=== PATIENT | male | born 1965 | race Caucasian/White ===

== ENCOUNTER 2017-10-21 11:19 | Inpatient (IN) | payer OTHER ==
[2017-10-21] MEDS ORDERED: morphine CARPU-JECT 2 MG/1 ML DISP.SYRIN IVPUSH ONE (11:48)
--- NOTE | 2017-10-21 11:48 | PDOC ---
History of Present Illness - General History Source: Patient Exam Limitations: No Limitations - History of Present Illness Initial Comments: 10/21/17 12:55 The patient is a 52-year-old male, with no significant PMHx, who reports to the ED complaining of a 1-week history of cough with subjective fever and acute onset of pleuritic chest pain this morning.The patient states that he flew in from this morning and reports shortness of breath that began after his flight landed. Patient denies any nausea, vomiting, diarrhea, or abdominal pain. Allergies: NKA Surgical Hx: None reported Social Hx: No reported tobacco, drug, or alcohol use. PCP: N/A <Joycelyn Cook - Last Filed: 10/21/17 12:55> <Kamini Cunha - Last Filed: 10/22/17 08:04> - General Chief Complaint: Shortness of Breath Stated Complaint: SHORTNESS OF BREATH Time Seen by Provider: 10/21/17 11:43 Past History <Joycelyn Cook - Last Filed: 10/21/17 12:55> - Past Medical History COPD: No DVT: No - Immunization History Immunization Up to Date: Yes - Suicide/Smoking/Psychosocial Hx Smoking History: Never smoked Number of Cigarettes Smoked Daily: 20 Information on smoking cessation initiated: No Hx Alcohol Use: No Drug/Substance Use Hx: No Substance Use Type: None <Kamini Cunha - Last Filed: 10/22/17 08:04> - Past Medical History Allergies/Adverse Reactions: Allergies Allergy/AdvReac Type Severity Reaction Status Date / Time No Known Allergies Allergy Verified 10/21/17 11:21 Home Medications: Ambulatory Orders NK [No Known Home Medication] 10/21/17 Review of Systems - Review of Systems Able to Perform ROS?: Yes Comments:: 10/21/17 12:56 GENERAL/CONSTITUTIONAL: (+)Fever. No chills. No weakness. HEAD, EYES, EARS, NOSE AND THROAT: No change in vision. No ear pain or discharge. No sore throat. CARDIOVASCULAR: (+)Chest pain or shortness of breath. RESPIRATORY: No cough, wheezing, or hemoptysis. SKIN: No rash GASTROINTESTINAL: No nausea, vomiting, diarrhea or constipation. GENITOURINARY: No dysuria, frequency, or change in urination. MUSCULOSKELETAL: No joint or muscle swelling or pain. No neck or back pain. NEUROLOGIC: No headache, vertigo, loss of consciousness, or change in strength/ sensation. ENDOCRINE: No increased thirst. No abnormal weight change. HEMATOLOGIC/LYMPHATIC: No anemia, easy bleeding, or history of blood clots. ALLERGIC/IMMUNOLOGIC: No hives or skin allergy. <Joycelyn Cook - Last Filed: 10/21/17 12:55> *Physical Exam - Vital Signs Last Vital Signs Temp Pulse Resp BP Pulse Ox 98.2 F 109 H 20 159/118 97 10/21/17 11:23 10/21/17 11:23 10/21/17 11:23 10/21/17 11:23 10/21/17 12:18 - Physical Exam Comments: 10/21/17 12:57 GENERAL: Awake, alert, and fully oriented. (+)Appears uncomfortable HEAD: No signs of trauma EYES: PERRLA, EOMI, sclera anicteric, conjunctiva clear ENT: Auricles normal inspection, hearing grossly normal, nares patent, oropharynx clear without exudates. Moist mucosa NECK: Normal ROM, supple, no lymphadenopathy, JVD, or masses LUNGS: (+)Crackles in the bases bilaterally, tachypneic with short shallow breath sounds. No wheezes. HEART: (+)Tachycardic. Normal S1 and S2, no murmurs, rubs or gallops ABDOMEN: Soft, nontender, normoactive bowel sounds. No guarding, no rebound. No masses EXTREMITIES: Normal range of motion, no edema. No clubbing or cyanosis. No cords, erythema, or tenderness NEUROLOGICAL: Cranial nerves II through XII grossly intact. Normal speech, normal gait SKIN: Warm, Dry, normal turgor, no rashes or lesions noted <Joycelyn Cook - Last Filed: 10/21/17 12:55> - Vital Signs Last Vital Signs Temp Pulse Resp BP Pulse Ox 98.2 F 109 H 20 159/118 99 10/21/17 11:23 10/21/17 11:23 10/21/17 11:23 10/21/17 11:23 10/21/17 11:23 <Kamini Cunha - Last Filed: 10/22/17 08:04> ED Treatment Course - LABORATORY CBC & Chemistry Diagram: 10/21/17 12:35 10/21/17 12:35 - Medications Given in the ED: ED Medications Discontinued Medications Generic Name Dose Route Start Last Admin Trade Name Alejandro PRN Reason Stop Dose Admin Morphine Sulfate 2 mg 10/21/17 11:48 10/21/17 12:01 Morphine Injection - IVPUSH 10/21/17 11:49 2 mg ONCE ONE Administration <Joycelyn Cook - Last Filed: 10/21/17 12:55> - LABORATORY CBC & Chemistry Diagram: 10/22/17 06:00 10/21/17 12:35 <Kamini Cunha - Last Filed: 10/22/17 08:04> Medical Decision Making - Medical Decision Making 10/22/17 07:56 Pt presents to the ED complaining of the acute onset of chest pain and shortness of breath that began while on a flight from [place] Also reports a week long history of subjective fever and productive cough. Differential included PNA, PE, less likely ACS, musculoskeletal chest pain. CXR negative for PNA, initial troponin negative, D dimer elevated. Will check CT PE to rule out PE. <Kamini Cunha - Last Filed: 10/22/17 08:04> *DC/Admit/Observation/Transfer - Attestations Scribe Attestion: 10/21/17 13:00 Documentation prepared by Joycelyn Cook, acting as medical billing coordinator for Kamini Cunha MD. <Joycelyn Cook - Last Filed: 10/21/17 12:55> <Kamini Cunha - Last Filed: 10/22/17 08:04> Diagnosis at time of Disposition: Chest pain - Discharge Dispostion Condition at time of disposition: Stable
[2017-10-21] MEDS ORDERED: MORPHINE SULFATE 10 MG/1 ML *VIAL ONE (12:04)
[2017-10-21 12:58] LABS: BASO % 0.6 % (0-2.0); EOS % 0.7 % (0-4.5); HEMATOCRIT 44.8 % (35.4-49); HEMOGLOBIN 15.4 GM/dL (11.7-16.9); LYMPH % 27.8 % (8-40); MCH 32.8 pg (25.7-33.7); MCHC 34.3 g/dl (32.0-35.9); MEAN CELL VOLUME 95.7 fl (80-96); MEAN PLT VOLUME 7.9 fl (7.5-11.1); MONO % 9.7 % (3.8-10.2); NEUT % 61.2 % (42.8-82.8); PLATELET COUNT 216 K/MM3 (134-434); RBC 4.68 M/mm3 (4.00-5.60); RDW 12.9 % (11.9-15.9); WHITE BLOOD COUNT 5.4 K/mm3 (4.0-10.0)
[2017-10-21 13:27] LABS: ALBUMIN 4.3 g/dl (3.4-5.0); ALK PHOS 96 U/L (45-117); ANION GAP 7 (8-16); BILIRUBIN,TOTAL 0.5 mg/dL (0.2-1.0); BLOOD UREA NITROGEN 14 mg/dL (7-18); CALCIUM 9.2 mg/dL (8.5-10.1); CHLORIDE 101 mmol/L (98-107); CO2 29 mmol/L (21-32); CREATININE 0.9 mg/dL (0.7-1.3); GLUCOSE,RANDOM 133 mg/dL (74-106); POTASSIUM 4.1 mmol/L (3.5-5.1); SGOT/AST 59 U/L (15-37); SGPT/ALT 98 U/L (12-78); SODIUM 137 mmol/L (136-145); TOT PROT 7.5 g/dl (6.4-8.2)
[2017-10-21] MEDS ORDERED: KETOROLAC TROMETHAMINE 30 MG/1 ML VIAL IVPUSH ONE (13:35)
[2017-10-21] MEDS ORDERED: KETOROLAC TROMETHAMINE 30 MG/1 ML VIAL ONE (13:38)
[2017-10-21] MEDS ORDERED: amLODIPine BESYLATE 10 MG TABLET (FP) PO ONE (14:40)
[2017-10-21 15:10] LABS: N-TERMINAL BNP 61.12 pg/ml (5-125)
[2017-10-21] MEDS ORDERED: amLODIPine BESYLATE 5 MG TABLET (FP) ONE (15:17)
[2017-10-21 18:54] LABS: URINE APPEARANCE CLEAR; URINE BILIRUBIN NEGATIVE (NEGATIVE); URINE BLOOD 1+ (NEGATIVE); URINE COLOR STRAW; URINE GLUCOSE (UA) NEGATIVE (NEGATIVE); URINE KETONE NEGATIVE (NEGATIVE); URINE LEUK ESTERASE NEGATIVE (NEGATIVE); URINE NITRITE NEGATIVE (NEGATIVE); URINE PROTEIN NEGATIVE (NEGATIVE); URINE UROBILINOGEN NEGATIVE mg/dL (0.2-1.0)
--- NOTE | 2017-10-21 20:39 | PDOC ---
*Physical Exam - Vital Signs Last Vital Signs Temp Pulse Resp BP Pulse Ox 97.9 F 71 18 170/108 97 10/21/17 20:28 10/21/17 20:29 10/21/17 20:29 10/21/17 20:29 10/21/17 20:29 ED Treatment Course - LABORATORY CBC & Chemistry Diagram: 10/21/17 12:35 10/21/17 12:35 - ADDITIONAL ORDERS Additional order review: Laboratory Results 10/21/17 10/21/17 10/21/17 18:40 13:30 12:35 D-Dimer 694 H Sodium Potassium Chloride Carbon Dioxide Anion Gap BUN Creatinine Creat Clearance w eGFR Random Glucose Lactic Acid Calcium Total Bilirubin AST ALT Alkaline Phosphatase Creatine Kinase Cancelled Troponin I Cancelled B-Natriuretic Peptide Cancelled Total Protein Albumin Urine Color Straw Urine Appearance Clear Urine pH 6.0 Ur Specific [place] 1.030 Urine Protein Negative Urine Glucose (UA) Negative Urine Ketones Negative Urine Blood 1+ H Urine Nitrite Negative Urine Bilirubin Negative Urine Urobilinogen Negative Ur Leukocyte Esterase Negative Urine WBC (Auto) <1 Urine RBC (Auto) <1 10/21/17 10/21/17 12:35 12:35 D-Dimer Sodium 137 Potassium 4.1 Chloride 101 Carbon Dioxide 29 Anion Gap 7 L BUN 14 Creatinine 0.9 Creat Clearance w eGFR > 60 Random Glucose 133 H Lactic Acid 1.5 Calcium 9.2 Total Bilirubin 0.5 AST 59 H ALT 98 H Alkaline Phosphatase 96 Creatine Kinase 106 Troponin I < 0.02 B-Natriuretic Peptide 61.12 Total Protein 7.5 Albumin 4.3 Urine Color Urine Appearance Urine pH Ur Specific [place] Urine Protein Urine Glucose (UA) Urine Ketones Urine Blood Urine Nitrite Urine Bilirubin Urine Urobilinogen Ur Leukocyte Esterase Urine WBC (Auto) Urine RBC (Auto) 10/21/17 12:35 RBC 4.68 MCV 95.7 MCHC 34.3 RDW 12.9 MPV 7.9 Neutrophils % 61.2 Lymphocytes % 27.8 Monocytes % 9.7 Eosinophils % 0.7 Basophils % 0.6 - Medications Given in the ED: ED Medications Discontinued Medications Generic Name Dose Route Start Last Admin Trade Name Freq PRN Reason Stop Dose Admin Amlodipine Besylate 10 mg 10/21/17 14:40 10/21/17 15:19 Norvasc - PO 10/21/17 14:41 10 mg ONCE ONE Administration Ketorolac Tromethamine 30 mg 10/21/17 13:35 10/21/17 13:42 Toradol Injection - IVPUSH 10/21/17 13:36 30 mg ONCE ONE Administration Morphine Sulfate 2 mg 10/21/17 11:48 10/21/17 12:01 Morphine Injection - IVPUSH 10/21/17 11:49 2 mg ONCE ONE Administration Medical Decision Making - Medical Decision Making 10/21/17 20:[address] Cunha. Patient presents with shortness of breath since this morning as well as pleuritic chest pain. Patient recently returned from the [facility]. In addition he's had cold symptoms for the last few weeks. Upon signout, CTA was pending which has resulted as negative for PE however patient does have a trace pericardial effusion. Patient's blood pressure on arrival to the emergency department was elevated as well and was given 10 mg of amlodipine. On my reevaluation, the patient continues to have shortness of breath and upper back pain bilaterally that radiates anteriorly to the chest. His blood pressure in both arms is in the 170s systolic over 110 despite amlodipine 10 mg. Patient does not have a primary care doctor. Given persistently elevated blood pressure, back/chest pain, and possible pericardial effusion, will admit the patient to observation. The hospitalist has been microblogged, we are waiting a call back. 10/21/17 20:56 Case discussed with resident physician Dr. Durant. Admitting attending Dr. Stahl requesting flu swab prior to accepting admission. Discussed with resident that flu swab should not hold off admission, she stated she will have Dr. Stahl give me a call to discuss. Flu swab ordered, we are awaiting a call back from Dr. Stahl for admission. 10/21/17 21:06 No call back, texted via microblog regarding admission. Dr. Avila stated "please give us 15 mins to see him first" 10/21/17 21:47 Microblogged regarding status of admission, Dr. Avila stated "will let you know in a minute, waiting for attending to present" 10/21/17 22:20 We were microblogged by Dr. Avila that pt is accepted for admission to [facility]. Case discussed in detail with admitting physician including history, physical exam and ancillary studies. Admitting physician has assumed care for the patient, will follow all pending diagnostics and will complete the evaluation and treatment. *DC/Admit/Observation/Transfer Diagnosis at time of Disposition: Chest pain - Discharge Dispostion Condition at time of disposition: Stable Admit: Yes - Referrals Referrals: Saad Banks MD [Staff Physician] - - Patient Instructions Printed Discharge Instructions: DI for Shortness of Breath Print Language: HEBREW - Post Discharge Activity - Attestations Physician Attestion: 10/21/17 22:21 I, Dr. Luis Alfredo Langford MD, attest that this document has been prepared under my direction and personally reviewed by me in its entirety. I further attest, that it accurately reflects all work, treatment, procedures and medical decision -making performed by me.
[2017-10-21] MEDS ORDERED: IBUPROFEN 400 MG TABLET (FP) PO PRN (22:11)
--- NOTE | 2017-10-21 22:23 | HP ---
CHIEF COMPLAINT: "I have back pain" PCP: none HISTORY OF PRESENT ILLNESS: This is a 52 yo M with no PMH, who presents due to back pain. Patient reports flu like symptoms x 2 weeks while in including subjective f/c, dry cough, sore throat and myalgia, all of which have been gradually improving. whole on a flight from to [place] earlier today he developed band like lower back pain that proceeded to include upper back as well and finally some anterior chest wall. pain was sharp 8/10 wexacerbated by movement and deep inspiration. he reports some sob due to restriction to deep inspiration. Patient has not seen a doctor in 3 years and is unaware of any cardiac hisotry, april was found to be hypertensive in ED 180's /110's. He was ruled out for PE with a negative CTa, However his EKG was consistent with lateral strain pattern. Patient reports MD history in father at 55 yo and personal history in increased exercise intolerance (fatigue while walking up hill. He denies orthopnea, le edema, weight pain, palpitations, CP, appetite loss. He denies h/a, dizziness, abd pain , n/v, diarrhea, constipation, dysuria, hematuria. 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 Alcohol: 4 hard liquor drinks/day, last drink yesterday Drugs: denies Family History: MD, HTN, DM, lung ca, lymphoma Allergies No Known Allergies Allergy (Verified 10/21/17 11:21) HOME MEDICATIONS: Home Medications Medication Instructions Recorded NK [No Known Home Medication] 10/21/17 REVIEW OF SYSTEMS CONSTITUTIONAL: Absent: fever, chills, diaphoresis, generalized weakness, malaise, loss of appetite, weight change HEENT: Absent: rhinorrhea, nasal congestion, CARDIOVASCULAR: Absent: chest pain, syncope, palpitations, irregular heart rate, lightheadedness , peripheral edema RESPIRATORY: Absent: cough, orthopnea, wheezing, stridor, hemoptysis GASTROINTESTINAL: Absent: abdominal pain, abdominal distension, nausea, vomiting, diarrhea, constipation, melena, hematochezia GENITOURINARY: Absent: dysuria MUSCULOSKELETAL: Absent: arthralgia, SKIN: Absent: itching, pallor HEMATOLOGIC/IMMUNOLOGIC: Absent: easy bleeding, easy bruising, lymphadenopathy, frequent infections ENDOCRINE: Absent: unexplained weight gain, unexplained weight loss, heat intolerance, cold intolerance NEUROLOGIC: Absent: headache, focal weakness or paresthesias PSYCHIATRIC: Absent: anxiety, depression PHYSICAL EXAMINATION Vital Signs - 24 hr 10/21/17 10/21/17 10/21/17 11:23 12:18 13:23 Temperature 98.2 F Pulse Rate 109 H Pulse Rate [ 77 Apical] Respiratory 20 17 Rate Blood Pressure 159/118 Blood Pressure 162/103 [Left Arm] Blood Pressure [Right Arm] O2 Sat by Pulse 99 97 98 Oximetry (%) 10/21/17 10/21/17 10/21/17 17:23 20:28 20:29 Temperature 98.1 F 97.9 F Pulse Rate Pulse Rate [ 78 70 71 Apical] Respiratory 18 18 Rate Blood Pressure Blood Pressure 186/112 169/115 [Left Arm] Blood Pressure 170/108 [Right Arm] O2 Sat by Pulse 98 96 97 Oximetry (%) GENERAL: Awake, alert, and fully oriented, in no acute distress. HEAD: Normal with no signs of trauma. EYES: Pupils equal, round and reactive to light, extraocular movements intact, sclera anicteric, conjunctiva clear. No lid lag. EARS, NOSE, THROAT: Moist mucous membranes. NECK: supple without JVD LUNGS: breath sounds diffusely restricted, expiratory wheezes HEART: Regular rate and rhythm, normal S1 and S2 , grade 2 diastolic murmur at L upper sternal boarder while lying flat ABDOMEN: Soft, nontender, not distended, normoactive bowel sounds, no guarding, no rebound, no masses. MUSCULOSKELETAL: mild CVA tenderness and diffuse back tenderness UPPER EXTREMITIES: 2+ pulses, warm, well-perfused. No cyanosis. No clubbing. No peripheral edema. LOWER EXTREMITIES: 2+ pulses, warm, well-perfused. No calf tenderness. No peripheral edema. NEUROLOGICAL: Cranial nerves II-XII grossly intact. Normal speech PSYCHIATRIC: Cooperative. Good eye contact. Appropriate mood and affect. SKIN: Warm, dry Laboratory Results - last 24 hr 10/21/17 10/21/17 10/21/17 12:35 12:35 12:35 WBC 5.4 RBC 4.68 Hgb 15.4 Hct 44.8 MCV 95.7 MCH 32.8 MCHC 34.3 RDW 12.9 Plt Count 216 MPV 7.9 Neutrophils % 61.2 Lymphocytes % 27.8 Monocytes % 9.7 Eosinophils % 0.7 Basophils % 0.6 D-Dimer Sodium 137 Potassium 4.1 Chloride 101 Carbon Dioxide 29 Anion Gap 7 L BUN 14 Creatinine 0.9 Creat Clearance w eGFR > 60 Random Glucose 133 H Lactic Acid 1.5 Calcium 9.2 Total Bilirubin 0.5 AST 59 H ALT 98 H Alkaline Phosphatase 96 Creatine Kinase 106 Troponin I < 0.02 B-Natriuretic Peptide 61.12 Total Protein 7.5 Albumin 4.3 Urine Color Urine Appearance Urine pH Ur Specific [place] Urine Protein Urine Glucose (UA) Urine Ketones Urine Blood Urine Nitrite Urine Bilirubin Urine Urobilinogen Ur Leukocyte Esterase Urine WBC (Auto) Urine RBC (Auto) 10/21/17 10/21/17 10/21/17 12:35 13:30 18:40 WBC RBC Hgb Hct MCV MCH MCHC RDW Plt Count MPV Neutrophils % Lymphocytes % Monocytes % Eosinophils % Basophils % D-Dimer 694 H Sodium Potassium Chloride Carbon Dioxide Anion Gap BUN Creatinine Creat Clearance w eGFR Random Glucose Lactic Acid Calcium Total Bilirubin AST ALT Alkaline Phosphatase Creatine Kinase Cancelled Troponin I Cancelled B-Natriuretic Peptide Cancelled Total Protein Albumin Urine Color Straw Urine Appearance Clear Urine pH 6.0 Ur Specific [place] 1.030 Urine Protein Negative Urine Glucose (UA) Negative Urine Ketones Negative Urine Blood 1+ H Urine Nitrite Negative Urine Bilirubin Negative Urine Urobilinogen Negative Ur Leukocyte Esterase Negative Urine WBC (Auto) <1 Urine RBC (Auto) <1 ASSESSMENT/PLAN: This is a 52 yo M with no PMH, who presents due to back pain. Abnormal EKG/Suspicion of CAD -EKG consistent with poosr r wave progression and strein pattern in lateral leads -history of recent increased exercise intolerance, strong cardiac family history , smoking status -no physician follow up but willing to to to clinic PCP -trop negative, CXR: increased interstitial markings and enlarged pulmonary vasculature consistent with possible COPD/pulm htn -tele monitoring -tsh, free t4, lipid panel, a1c -cardiology consult for possible exercise stress test inpatient vs outpatient -tte Back pain -appears to be musculoskeletal in origin -NSAID PRN Hypertensive urgency -likley underlying chronic hypertension at baseline -start lisinopril 10 daily -add chlorthalidone tomorrow -Na restriction Smoking -recommend pulm function tests outpatient -cessation counseling ETOH abuse -recommend cessation counseling -mild transaminitis evaluation outpatient Dispo: obs tele Problem List - Problem (1) HTN (hypertension) Code(s): I10 - ESSENTIAL (PRIMARY) HYPERTENSION (2) Hypertensive urgency Code(s): I16.0 - HYPERTENSIVE URGENCY (3) Back pain Code(s): M54.9 - DORSALGIA, UNSPECIFIED (4) Abnormal EKG Code(s): R94.31 - ABNORMAL ELECTROCARDIOGRAM [ECG] [EKG] (5) Transaminitis Code(s): R74.0 - NONSPEC ELEV OF LEVELS OF TRANSAMNS & LACTIC ACID DEHYDRGNSE Visit type - Emergency Visit Emergency Visit: Yes Care time: The patient presented to the Emergency Department on the above date and was hospitalized for further evaluation of their emergent condition. - New Patient This patient is new to me today: Yes Date on this admission: 10/21/17 - Critical Care Critical Care patient: No
[2017-10-21] MEDS ORDERED: LISINOPRIL 5 MG TABLET (FP) ONE (22:45)
[2017-10-21] MEDS: LISINOPRIL 10 MG TABLET (FP) PO SCH (23:00)
[2017-10-21] MEDS ORDERED: IBUPROFEN 400 MG TABLET (FP) PO ONE (23:03)
[2017-10-22] MEDS ORDERED: KETOROLAC TROMETHAMINE 30 MG/1 ML VIAL IVPUSH PRN (04:09)
[2017-10-22] MEDS ORDERED: morphine CARPU-JECT 2 MG/1 ML DISP.SYRIN IM PRN (04:10)
[2017-10-22] MEDS ORDERED: SODIUM CHLORIDE 1,000 ML IV SCH (04:15)
[2017-10-22] MEDS ORDERED: ACETAMINOPHEN 325 MG TABLET (FP) ONE ×2 (06:15→16:02)
[2017-10-22 06:29] LABS: HEMATOCRIT 46.7 % (35.4-49); HEMOGLOBIN 16.4 GM/dL (11.7-16.9); MCH 33.4 pg (25.7-33.7); MCHC 35.1 g/dl (32.0-35.9); MEAN CELL VOLUME 95.2 fl (80-96); MEAN PLT VOLUME 8.4 fl (7.5-11.1); WHITE BLOOD COUNT 7.3 K/mm3 (4.0-10.0)
[2017-10-22 07:46] LABS: CHLORIDE 104 mmol/L (98-107); POTASSIUM 4.3 mmol/L (3.5-5.1); SODIUM 140 mmol/L (136-145)
[2017-10-22 07:55] LABS: ALBUMIN 3.8 g/dl (3.4-5.0); ALK PHOS 89 U/L (45-117); ANION GAP 9 (8-16); BILIRUBIN,TOTAL 0.5 mg/dL (0.2-1.0); BLOOD UREA NITROGEN 13 mg/dL (7-18); CALCIUM 9.3 mg/dL (8.5-10.1); CO2 27 mmol/L (21-32); CREATININE 0.8 mg/dL (0.7-1.3); GLUCOSE,RANDOM 96 mg/dL (74-106); MAGNESIUM 2.5 mg/dL (1.8-2.4); PHOSPHOROUS 4.8 mg/dL (2.5-4.9); SGOT/AST 58 U/L (15-37); SGPT/ALT 100 U/L (12-78); TOT PROT 7.2 g/dl (6.4-8.2)
[2017-10-22 08:37] LABS: PLATELET COUNT 205 K/MM3 (134-434)
--- NOTE | 2017-10-22 10:42 | PN ---
Teaching Attending Note Name of Resident: Brooke Dominguez ATTENDING PHYSICIAN STATEMENT SUBJECTIVE: Patient seen and examined. no chest pain. Still with cough, sneezing and runny nose. Denies any nausea, vomiting or abdominal pain. Has been drinking 'few drinks' daily over the last few weeks. OBJECTIVE: Vital Signs Period Temp Pulse Resp BP Sys/Hall Pulse Ox Last 24 Hr 97.9 F-98.2 F 65-109 16-20 134-186/88-118 96-100 Intake & Output 10/19/17 10/20/17 10/21/17 10/22/17 23:59 23:59 23:59 23:59 Weight 120 lb General: sitting in wheelchair on his way back from ultrasound Abdomen: soft, NT, ND, positive bowel sounds chest: CTAB, no rales or wheezing extremities: no edema CVS:S1s2 regular Home Medication List Medication Instructions Recorded Confirmed Type NK [No Known Home Medication] 10/21/17 10/21/17 History Active Medications Generic Name Dose Route Start Last Admin Trade Name Joseq PRN Reason Stop Dose Admin Chlorthalidone 25 mg 10/22/17 10:00 [place] - PO DAILY ARMAND Ibuprofen 400 mg 10/21/17 22:11 10/21/17 23:07 Motrin - PO 400 mg Q6H PRN Administration BACK PAIN Lisinopril 10 mg 10/21/17 22:30 10/21/17 23:00 Prinivil PO 10 mg DAILY ARMAND Administration Laboratory Results - last 24 hr 10/21/17 10/21/17 10/21/17 12:35 12:35 12:35 WBC 5.4 RBC 4.68 Hgb 15.4 Hct 44.8 MCV 95.7 MCH 32.8 MCHC 34.3 RDW 12.9 Plt Count 216 MPV 7.9 Neutrophils % 61.2 Lymphocytes % 27.8 Monocytes % 9.7 Eosinophils % 0.7 Basophils % 0.6 D-Dimer Sodium 137 Potassium 4.1 Chloride 101 Carbon Dioxide 29 Anion Gap 7 L BUN 14 Creatinine 0.9 Creat Clearance w eGFR > 60 Random Glucose 133 H Hemoglobin A1c % Lactic Acid 1.5 Calcium 9.2 Phosphorus Magnesium Total Bilirubin 0.5 AST 59 H ALT 98 H Alkaline Phosphatase 96 Creatine Kinase 106 Troponin I < 0.02 B-Natriuretic Peptide 61.12 Total Protein 7.5 Albumin 4.3 Triglycerides Cholesterol Total LDL Cholesterol HDL Cholesterol TSH Free T4 Urine Color Urine Appearance Urine pH Ur Specific [place] Urine Protein Urine Glucose (UA) Urine Ketones Urine Blood Urine Nitrite Urine Bilirubin Urine Urobilinogen Ur Leukocyte Esterase Urine WBC (Auto) Urine RBC (Auto) 10/21/17 10/21/17 10/21/17 12:35 13:30 18:40 WBC RBC Hgb Hct MCV MCH MCHC RDW Plt Count MPV Neutrophils % Lymphocytes % Monocytes % Eosinophils % Basophils % D-Dimer 694 H Sodium Potassium Chloride Carbon Dioxide Anion Gap BUN Creatinine Creat Clearance w eGFR Random Glucose Hemoglobin A1c % Lactic Acid Calcium Phosphorus Magnesium Total Bilirubin AST ALT Alkaline Phosphatase Creatine Kinase Cancelled Troponin I Cancelled B-Natriuretic Peptide Cancelled Total Protein Albumin Triglycerides Cholesterol Total LDL Cholesterol HDL Cholesterol TSH Free T4 Urine Color Straw Urine Appearance Clear Urine pH 6.0 Ur Specific [place] 1.030 Urine Protein Negative Urine Glucose (UA) Negative Urine Ketones Negative Urine Blood 1+ H Urine Nitrite Negative Urine Bilirubin Negative Urine Urobilinogen Negative Ur Leukocyte Esterase Negative Urine WBC (Auto) <1 Urine RBC (Auto) <1 10/22/17 10/22/17 10/22/17 06:00 06:00 06:00 WBC 7.3 D RBC 4.90 Hgb 16.4 Hct 46.7 MCV 95.2 MCH 33.4 MCHC 35.1 RDW 13.0 Plt Count 205 MPV 8.4 Neutrophils % Lymphocytes % Monocytes % Eosinophils % Basophils % D-Dimer Sodium 140 Potassium 4.3 Chloride 104 Carbon Dioxide 27 Anion Gap 9 BUN 13 Creatinine 0.8 Creat Clearance w eGFR > 60 Random Glucose 96 D Hemoglobin A1c % Lactic Acid Calcium 9.3 Phosphorus 4.8 Magnesium 2.5 H Total Bilirubin 0.5 AST 58 H ALT 100 H Alkaline Phosphatase 89 Creatine Kinase 72 Troponin I < 0.02 B-Natriuretic Peptide Total Protein 7.2 Albumin 3.8 Triglycerides 169 H Cholesterol 216 H Total LDL Cholesterol 161 H HDL Cholesterol 32 L TSH 1.69 Free T4 1.15 Urine Color Urine Appearance Urine pH Ur Specific [place] Urine Protein Urine Glucose (UA) Urine Ketones Urine Blood Urine Nitrite Urine Bilirubin Urine Urobilinogen Ur Leukocyte Esterase Urine WBC (Auto) Urine RBC (Auto) 10/22/17 06:00 WBC RBC Hgb Hct MCV MCH MCHC RDW Plt Count MPV Neutrophils % Lymphocytes % Monocytes % Eosinophils % Basophils % D-Dimer Sodium Potassium Chloride Carbon Dioxide Anion Gap BUN Creatinine Creat Clearance w eGFR Random Glucose Hemoglobin A1c % 5.6 Lactic Acid Calcium Phosphorus Magnesium Total Bilirubin AST ALT Alkaline Phosphatase Creatine Kinase Troponin I B-Natriuretic Peptide Total Protein Albumin Triglycerides Cholesterol Total LDL Cholesterol HDL Cholesterol TSH Free T4 Urine Color Urine Appearance Urine pH Ur Specific [place] Urine Protein Urine Glucose (UA) Urine Ketones Urine Blood Urine Nitrite Urine Bilirubin Urine Urobilinogen Ur Leukocyte Esterase Urine WBC (Auto) Urine RBC (Auto) CT chest - prelim result neg for PE or acute process Flu swab neg ASSESSMENT AND PLAN: 52 yom not recently seen a physician, recent ETOH dependence, admitted with flu like symptoms, atypical chest pain, found with uncontrolled HTN and transaminitis. -URI like illness -Atypical chest pain, suspect likely from above rather than cardiac, positive risk factors -Uncontrolled HTN -Transaminitis, hepatic steatosis, vs mild ETOH hepatitis. -HLD Plan: Telemetry with no events. Troponin I neg x 2. For 2D echo. Cardiology consulted , Dr. Alvarez to see, will follow up recs. Start ASA 81 mg daily. Supportive care for URI. Continue lisinopril/chlorthaline. Discussed with patient daughter, will need outpatient electolytes/renal function monitoring. Mild transiminits from ?fatty liver vs recent ETOH dependence. No abdominal symptoms. Check PT to address DF, suspect would be low. ETOH cessation counseling provided. No concerns for withdrawal currently. Hold off starting statins till lfts stabilized. Low salt/cholesterol diet counseling provided. Discussed with patient and daughter to follow up medical clinic next week, agreable. D/c home later today or tomorrow pending cardiology input if no concerns
[2017-10-22] MEDS: LISINOPRIL 10 MG TABLET (FP) PO SCH (11:18)
[2017-10-22] MEDS: CHLORTHALIDONE 25 MG TABLET PO SCH (11:18)
--- NOTE | 2017-10-22 11:28 | PN ---
Progress Note (short form) - Note Progress Note: Chief Complaint: Events noted, notes reviewed, chest discomfort which is exacerbated by cough and deep inspiration, reports dyspnea History of Present Illness: Seen and examined on telemetry. Full consult dictated Note error in the initial EKG, V4, repeat EKG this AM normal - Current Medication List Current Medications Chlorthalidone (Hygroton -) 25 mg PO DAILY [facility] Last Admin: 10/22/17 11:18 Dose: 25 mg Folic Acid (Folic Acid -) 1 mg PO DAILY [facility] Ibuprofen (Motrin -) 400 mg PO Q6H PRN PRN Reason: BACK PAIN Last Admin: 10/21/17 23:07 Dose: 400 mg Lisinopril (Prinivil) 10 mg PO DAILY [facility] Last Admin: 10/22/17 11:18 Dose: 10 mg Multivitamins/Minerals/Vitamin C (Tab-A-Vit -) 1 tab PO DAILY [facility] Thiamine HCl (Vitamin B1 -) 100 mg PO DAILY [facility] Review of Systems Cardiovascular: As noted above Respiratory: denies: reports: Cough Gastrointestinal: denies: Nausea, Vomiting, Diarrhea, Constipation or Abdominal Discomfort Musculoskeletal: No Symptoms Reported Endocrine: No Symptoms Reported - Objective Vital Signs: Last Vital Signs Temp Pulse Resp BP Pulse Ox 98.1 F 65 16 134/88 100 10/22/17 07:10 10/22/17 07:10 10/22/17 07:10 10/22/17 07:10 10/22/17 07:10 Intake & Output 10/19/17 10/20/17 10/21/17 10/22/17 23:59 23:59 23:59 23:59 Weight 120 lb Constitutional: No Distress, Awake, Alert and Oriented Respiratory: Scattered Rhonchi Bilaterally Cardiovascular: S1 S2 Regular Rate and Rhythm No Murmurs Clicks or Gallops Gastrointestinal: Soft Benign Normal Bowel Sounds Ext: No Edema Intact Distal Pulses No Calf Tenderness Labs: Troponin, BNP 10/21/17 10/21/17 10/22/17 12:35 12:35 06:00 Troponin I < 0.02 Cancelled < 0.02 B-Natriuretic Peptide 61.12 Cancelled CBC, BMP 10/22/17 06:00 10/22/17 06:00 Hepatic Panel Total Bilirubin 0.5 mg/dL (0.2-1.0) 10/22/17 06:00 AST 58 U/L (15-37) H 10/22/17 06:00 ALT 100 U/L (12-78) H 10/22/17 06:00 Alkaline Phosphatase 89 U/L (45-117) 10/22/17 06:00 Albumin 3.8 g/dl (3.4-5.0) 10/22/17 06:00 Assessment/Plan Assessment: 1. Chest pain syndrome, clinical presentation of which is consistent with musculo-skeletal discomfort possible pleuritis, atypical for CAD angina pectoris 2. HTN, on no therapy 3. Hypercholesterolemia, on no therapy 4. Trace pericardial effusion of no clinical significance 5. Fatty liver/steatosis, abnormal hepatic ultrasound, abnormal LFT's 6. Tobacco abuse PLAN: 1. Agree with ACEI 2. Add B-Blockers 3. Add statins 4. Add ASA 5. Echocardiography to evaluate LV size and function and the above noted pericardial effusion, as outpatient 6. MPI study for evaluation of the above noted presentation, as outpatient 7. Counseled smoking cessation and abstinence 8. Counselled compliance with therapy administration and medical F/U Cab be D/C from the cardiovascular point of view and outpatient F/U To Corbett M.D.
[2017-10-22 11:30] LABS: INR 0.99 (0.82-1.09); PROTHROMBIN TIME (PATIENT) 11.2 SEC (9.98-11.88)
[2017-10-22 11:38] VITALS: BMI 21.9
[2017-10-22] MEDS: FOLIC ACID 1 MG TABLET (FP) PO SCH (11:54)
--- NOTE | 2017-10-22 12:51 | EKG ---
Test Reason : Blood Pressure : / mmHG Vent. Rate : 072 BPM Atrial Rate : 072 BPM P-R Int : 180 ms QRS Dur : 076 ms QT Int : 378 ms P-R-T Axes : 013 -02 015 degrees QTc Int : 413 ms NORMAL SINUS RHYTHM NORMAL ECG WHEN COMPARED WITH ECG OF 21-OCT-2017 11:48, VENT. RATE HAS DECREASED BY 35 BPM NONSPECIFIC T WAVE ABNORMALITY NO LONGER EVIDENT IN LATERAL LEADS NOTE CHANGE IN R-WAVE PROGRESSION Confirmed by PERLA ANGEL MD ([id number]) on 10/22/2017 12:51:24 PM Referred By: Confirmed By:PERLA ANGEL MD
--- NOTE | 2017-10-22 13:08 | EKG ---
Test Reason : Blood Pressure : / mmHG Vent. Rate : 107 BPM Atrial Rate : 107 BPM P-R Int : 174 ms QRS Dur : 060 ms QT Int : 316 ms P-R-T Axes : 037 -11 009 degrees QTc Int : 421 ms SINUS TACHYCARDIA POOR R WAVE PROGRESSION ABNORMAL ECG NO PREVIOUS ECGS AVAILABLE NOTE ERROR IN LEAD V4, RECOMMEND REPEAT TRACING Confirmed by PERLA ANGEL MD ([id number]) on 10/22/2017 1:08:21 PM Referred By: Confirmed By:PERLA ANGEL MD
[2017-10-22] MEDS: THIAMINE HCL 100 MG TABLET (FP) PO SCH (14:05)
--- NOTE | 2017-10-22 14:17 | CONS ---
DATE OF CONSULTATION: 10/22/2017 CONSULTATION REQUESTED BY: Hospitalist. CHIEF COMPLAINT: Dyspnea, chest discomfort, cardiovascular evaluation. A 52-year-old male, of [place] descent, with known history of hypercholesterolemia, currently on no medical therapy, tobacco abuse, who denied hypertensive cardiovascular disease, diabetes mellitus, but reported family history of premature coronary artery disease, who presented to [facility] with symptoms of upper respiratory tract infection for the last 2 weeks, with progressive dyspnea and subsequent retrosternal chest discomfort. Dyspnea has been noted at rest and with physical activity. Chest discomfort has been described as sharp pain which is exacerbated by deep inspiration and cough. The patient denied any associated diaphoresis. The patient denied any orthopnea, paroxysmal nocturnal dyspnea, or peripheral edema. Patient denied any palpitations, dizziness, lightheadedness, or syncope. Patient stated that several years ago he was initiated on statin therapy for management of hypercholesterolemia but subsequently therapy was discontinued and he has not been evaluated by a physician in several years. PAST MEDICAL HISTORY: Hypercholesterolemia. PAST SURGICAL HISTORY: None. SOCIAL HISTORY: A smoker. FAMILY HISTORY: Positive for premature coronary artery disease. ALLERGIES: None reported. MEDICAL THERAPY AT HOME: None. Medical therapy currently includes chlorthalidone 25 mg once a day, folic acid 1 mg once a day, Motrin 400 mg every 6 hours as needed, lisinopril 10 mg once a day, multivitamin 1 tablet once a day, vitamin B1 100 mg once a day. REVIEW OF SYSTEMS: Head and Neck: Denies headache, photophobia, blurring of vision. Respiratory: Reports cough productive of clear sputum. Cardiovascular: As noted above. Gastrointestinal: Denies nausea, vomiting, diarrhea, abdominal discomfort. Genitourinary: No symptoms reported. Musculoskeletal: No symptoms reported. PHYSICAL EXAMINATION: Vital Signs: Blood pressure is 134/88 mmHg. Pulse rate is 65 beats per minute. Temperature 98.1. Head and Neck: Pupils equal, react to light and accommodation. Extraocular muscles are intact. Anicteric sclerae. Negative JVD. No bruit appreciated. Chest: Bilateral scattered rhonchi. Cardiovascular: S1, S2 regular. No murmurs, clicks or gallops. Abdomen: Soft, benign. Normoactive bowel sound. Extremities: Negative edema. Intact distal pulses. No calf tenderness. Electrocardiogram yesterday revealed sinus rhythm with T-wave inversion in lead V4, most likely related to error. Repeat electrocardiogram this a.m. revealed sinus within normal limits. CTA of the chest report was noted. Small pericardial effusion. CPK, troponin I levels were noted, less than 0.02. CBC revealed white cell count 7.3, hemoglobin 15.4, platelet count 205. Basic metabolic profile revealed a sodium 140, potassium 4.3, BUN of 13, creatinine 0.8, glucose 96, AST 58, ALT 100. Ultrasound of the liver revealed evidence of probable fatty liver. ASSESSMENT: 1. Chest pain syndrome, clinical presentation of which is consistent with musculoskeletal discomfort, possible pleuritis, atypical for coronary artery disease, angina pectoris. 2. Hypertension, on no therapy. 3. Hypercholesterolemia, on no therapy. 4. Pericardial effusion on CT scan of the chest, of no clinical significance. 5. Fatty liver/steatosis, abnormal hepatic ultrasound and abnormal liver function testing. 6. Tobacco abuse. RECOMMENDATION: 1. Agree with angiotensin-converting enzyme inhibitor therapy continuation. 2. Addition of beta blockers. 3. Addition of statin therapy. 4. Addition of aspirin therapy. 5. Echocardiography for evaluation of left ventricular size and function and the above-noted pericardial effusion can be performed on outpatient basis. 6. Myocardial perfusion imaging study for evaluation of the above-noted presentation, can be performed as outpatient. 7. Patient was strongly counseled smoking cessation and abstinence. 8. Patient was counseled compliance with therapy administration and medical followup. Can be discharged, from the cardiovascular point of view, and outpatient followup and evaluation as outlined above is recommended. Thank you for your kind referral. PERLA ANGEL M.D. [id number]
[2017-10-22] MEDS ORDERED: OSELTAMIVIR PHOSPHATE 75 MG CAPSULE PO ONE (16:03)
[2017-10-22] MEDS: ACETAMINOPHEN 325 MG TABLET (FP) PO PRN ×2 (16:07→22:06)
[2017-10-22] MEDS ORDERED: OSELTAMIVIR PHOSPHATE 75 MG CAPSULE ONE (16:12)
[2017-10-22] MEDS ORDERED: guaiFENesin 200 MG/10 ML 10 ML UNIT-DOSE CUPS ONE (16:16)
[2017-10-22] MEDS: guaiFENesin 200 MG/10 ML 10 ML UNIT-DOSE CUPS PO PRN (16:21)
[2017-10-22] MEDS: LACTATED RINGERS SOLUTION 1,000 ML/1,000 ML INFUS.BAG IV SCH (16:21)
[2017-10-22] MEDS ORDERED: KETOROLAC TROMETHAMINE 15 MG/ML VIAL ONE (17:46)
[2017-10-22] MEDS: KETOROLAC TROMETHAMINE 15 MG/ML VIAL IVPUSH PRN (17:50)
[2017-10-22] MEDS ORDERED: PT OWN MED DRAWER 7, Y5N ONE (21:40)
[2017-10-23] MEDS: KETOROLAC TROMETHAMINE 15 MG/ML VIAL IVPUSH PRN (00:04)
[2017-10-23] MEDS: OSELTAMIVIR PHOSPHATE 75 MG CAPSULE PO SCH ×3 (00:04→21:31)
[2017-10-23] MEDS: ACETAMINOPHEN 325 MG TABLET (FP) PO PRN ×3 (05:56→23:22)
[2017-10-23 07:16] LABS: BASO % 0.5 % (0-2.0); EOS % 0.5 % (0-4.5); HEMOGLOBIN 14.9 GM/dL (11.7-16.9); LYMPH % 27.6 % (8-40); MCH 33.2 pg (25.7-33.7); MCHC 34.7 g/dl (32.0-35.9); MEAN CELL VOLUME 95.8 fl (80-96); MEAN PLT VOLUME 8.5 fl (7.5-11.1); MONO % 6.2 % (3.8-10.2); NEUT % 65.2 % (42.8-82.8); PLATELET COUNT 227 K/MM3 (134-434); RBC 4.49 M/mm3 (4.00-5.60); RDW 12.9 % (11.9-15.9); WHITE BLOOD COUNT 6.7 K/mm3 (4.0-10.0)
[2017-10-23 07:37] LABS: ALBUMIN 3.6 g/dl (3.4-5.0); ANION GAP 8 (8-16); BILIRUBIN,DIRECT 0.2 mg/dL (0.0-0.2); BLOOD UREA NITROGEN 9 mg/dL (7-18); CALCIUM 9.1 mg/dL (8.5-10.1); CHLORIDE 103 mmol/L (98-107); CO2 29 mmol/L (21-32); CREATININE 0.9 mg/dL (0.7-1.3); GLUCOSE,RANDOM 91 mg/dL (74-106); POTASSIUM 4.3 mmol/L (3.5-5.1); SGOT/AST 27 U/L (15-37); SGPT/ALT 69 U/L (12-78); SODIUM 140 mmol/L (136-145)
[2017-10-23 07:38] LABS: ALK PHOS 77 U/L (45-117); BILIRUBIN,TOTAL 0.5 mg/dL (0.2-1.0); INR 1.12 (0.82-1.09); PROTHROMBIN TIME (PATIENT) 12.7 SEC (9.98-11.88); TOT PROT 6.6 g/dl (6.4-8.2)
[2017-10-23] MEDS ORDERED: PT OWN MED DRAWER 7, Y5N ONE (09:16)
[2017-10-23] MEDS: MULTIVITAMINS (DAILY MVI) TABLET (FP) PO SCH (09:44)
[2017-10-23] MEDS: CHLORTHALIDONE 25 MG TABLET PO SCH (09:44)
[2017-10-23] MEDS: FOLIC ACID 1 MG TABLET (FP) PO SCH (09:44)
[2017-10-23] MEDS: LISINOPRIL 10 MG TABLET (FP) PO SCH (09:45)
[2017-10-23] MEDS: THIAMINE HCL 100 MG TABLET (FP) PO SCH (09:45)
[2017-10-23] MEDS ORDERED: AZITHROMYCIN IVPB 500 MG in DEXTROSE 5%-WATER - 250 ML IVPB SCH (10:00)
[2017-10-23] MEDS ORDERED: CEFTRIAXONE 1 G/50 ML PREMIX 50 ML IVPB SCH (10:00)
--- NOTE | 2017-10-23 11:07 | PN ---
Progress Note, Physician History of Present Illness: Denies further chest pain or dyspnea. - Current Medication List Current Medications: Active Medications Acetaminophen (Tylenol -) 325 mg PO Q6H PRN PRN Reason: FEVER Last Admin: 10/23/17 05:56 Dose: 325 mg Atorvastatin Calcium (Lipitor -) 10 mg PO [facility] Chlorthalidone (Hygroton -) 25 mg PO DAILY [facility] Last Admin: 10/23/17 09:44 Dose: 25 mg Folic Acid (Folic Acid -) 1 mg PO DAILY [facility] Last Admin: 10/23/17 09:44 Dose: 1 mg Guaifenesin (Robitussin -) 10 ml PO Q6H PRN PRN Reason: COUGH Last Admin: 10/22/17 16:21 Dose: 10 ml Lactated Ringer's (Lactated Ringers Solution) 1,000 ml in 1,000 mls @ 75 mls/ hr IV ASDIR [facility] Last Admin: 10/22/17 16:21 Dose: 75 mls/hr Levofloxacin (Levaquin 500 Mg Premixed Ivpb -) 500 mg in 100 mls @ 100 mls/hr IVPB DAILY ONE Stop: 10/24/17 10:59 Ketorolac Tromethamine (Toradol Injection -) 15 mg IVPUSH Q6H PRN PRN Reason: fever Stop: 10/27/17 16:00 Last Admin: 10/23/17 00:04 Dose: 15 mg Lisinopril (Prinivil) 10 mg PO DAILY [facility] Last Admin: 10/23/17 09:45 Dose: 10 mg Multivitamins/Minerals/Vitamin C (Tab-A-Vit -) 1 tab PO DAILY [facility] Last Admin: 10/23/17 09:44 Dose: 1 tab Oseltamivir Phosphate (Tamiflu -) 75 mg PO BID [facility] Stop: 10/27/17 21:59 Last Admin: 10/23/17 09:45 Dose: 75 mg Thiamine HCl (Vitamin B1 -) 100 mg PO DAILY [facility] Last Admin: 10/23/17 09:45 Dose: 100 mg - Objective Vital Signs: Vital Signs Temperature 99.9 F H 10/23/17 09:37 Pulse Rate 86 10/23/17 09:37 Respiratory Rate 18 10/23/17 09:37 Blood Pressure 148/79 10/23/17 09:37 O2 Sat by Pulse Oximetry (%) 95 10/23/17 04:00 Constitutional: Yes: No Distress, Calm Neck: Yes: Supple Cardiovascular: Yes: Regular Rate and Rhythm Respiratory: Yes: Regular, Diminished Gastrointestinal: Yes: Normal Bowel Sounds, Soft Edema: No Labs: CBC, BMP 10/23/17 05:56 10/23/17 05:56 INR, PTT INR 1.12 (0.82-1.09) 10/23/17 05:56 - ....Imaging Cat Scan: Report Reviewed (Bibasilar ATX) Problem List - Problems (1) Hyperlipidemia Code(s): E78.5 - HYPERLIPIDEMIA, UNSPECIFIED Qualifiers: Hyperlipidemia type: pure hypercholesterolemia Qualified Code(s): E78.00 - Pure hypercholesterolemia, unspecified; E78.0 - Pure hypercholesterolemia (2) Chest pain Code(s): R07.9 - CHEST PAIN, UNSPECIFIED Qualifiers: Chest pain type: chest pain on breathing Qualified Code(s): R07.1 - Chest pain on breathing; R07.81 - Pleurodynia (3) HTN (hypertension) Code(s): I10 - ESSENTIAL (PRIMARY) HYPERTENSION Qualifiers: Hypertension type: essential hypertension Qualified Code(s): I10 - Essential (primary) hypertension (4) Transaminitis Code(s): R74.0 - NONSPEC ELEV OF LEVELS OF TRANSAMNS & LACTIC ACID DEHYDRGNSE Assessment/Plan 1. Chest pain syndrome, clinical presentation of which is consistent with musculo-skeletal discomfort possible pleuritis, atypical for CAD angina pectoris 2. HTN 3. Hypercholesterolemia 4. Trace pericardial effusion of no clinical significance 5. Fatty liver/steatosis, abnormal hepatic ultrasound, abnormal LFT's 6. Tobacco abuse PLAN: 1. Continue lisinopril 10 qd, chlorthalidone 25 qd, lipitor 10 qhs 2. Echocardiography to evaluate LV size and function and the above noted pericardial effusion, as outpatient 3. MPI study for evaluation of the above noted presentation, as outpatient 4. Counseled smoking cessation and abstinence 5. Counselled compliance with therapy administration and medical F/U Can be D/C from the cardiovascular point of view and outpatient F/U
--- NOTE | 2017-10-23 17:09 | PN ---
Teaching Attending Note Name of Resident: Kyle Harrison ATTENDING PHYSICIAN STATEMENT Time of evaluation: 10:35 AM I saw and evaluated the patient. I reviewed the resident's note and discussed the case with the resident. I agree with the resident's findings and plan as documented. SUBJECTIVE: Patient seen and examined, feels better, nasal congestion/cough/generalized aches and pains improved. No diarrhea, abdominal pain or urinary symptoms. NO chest pain today. OBJECTIVE: Vital Signs Period Temp Pulse Resp BP Sys/Hall Pulse Ox Last 24 Hr 99.6 F-102.9 F 85-94 18-20 148-159/79-103 95-96 Intake & Output 10/20/17 10/21/17 10/22/17 10/23/17 23:59 23:59 23:59 23:59 Intake Total 300 1200 Balance 300 1200 Weight 120 lb 120 lb general: ambulating in room, no acute distress Chest: no rales or wheezing appreciated Abdomen: soft, NT, ND, positive bowel sounds, neg [place]'s sign, no CVA tenderness Neck: soft, supple Extremities: no edema Home Medication List Medication Instructions Recorded Confirmed Type NK [No Known Home Medication] 10/21/17 10/21/17 History Active Medications Generic Name Dose Route Start Last Admin Trade Name Freq PRN Reason Stop Dose Admin Acetaminophen 650 mg 10/23/17 13:53 10/23/17 13:59 Tylenol - PO 650 mg Q4H PRN Administration FEVER Atorvastatin Calcium 10 mg 10/23/17 22:00 Lipitor - PO HS [facility] Chlorthalidone 25 mg 10/22/17 10:00 10/23/17 09:44 Hygroton - PO 25 mg DAILY [facility] Administration Folic Acid 1 mg 10/22/17 11:00 10/23/17 09:44 Folic Acid - PO 1 mg DAILY [facility] Administration Guaifenesin 10 ml 10/22/17 16:06 10/22/17 16:21 Robitussin - PO 10 ml Q6H PRN Administration COUGH Lactated Ringer's 1,000 ml in 1,000 mls @ 75 mls/hr 10/22/17 16:15 10/22/17 16:21 Lactated Ringers Solution IV 75 mls/hr ASDIR [facility] Administration Levofloxacin 500 mg in 100 mls @ 100 mls/hr 10/24/17 10:00 Levaquin 500 Mg Premixed Ivpb - IVPB 10/24/17 10:59 ONCE ONE Lisinopril 10 mg 10/21/17 22:30 10/23/17 09:45 Prinivil PO 10 mg DAILY [facility] Administration Multivitamins/Minerals/Vitamin C 1 tab 10/23/17 10:00 10/23/17 09:44 Tab-A-Vit - PO 1 tab DAILY [facility] Administration Oseltamivir Phosphate 75 mg 10/22/17 22:00 10/23/17 09:45 Tamiflu - PO 10/27/17 21:59 75 mg BID [facility] Administration Thiamine HCl 100 mg 10/22/17 11:00 10/23/17 09:45 Vitamin B1 - PO 100 mg DAILY [facility] Administration Laboratory Results - last 24 hr 10/23/17 10/23/17 10/23/17 05:56 05:56 05:56 WBC 6.7 RBC 4.49 Hgb 14.9 Hct 43.0 MCV 95.8 MCH 33.2 MCHC 34.7 RDW 12.9 Plt Count 227 MPV 8.5 Neutrophils % 65.2 Lymphocytes % 27.6 Monocytes % 6.2 Eosinophils % 0.5 Basophils % 0.5 PT with INR 12.70 H INR 1.12 Sodium 140 Potassium 4.3 Chloride 103 Carbon Dioxide 29 Anion Gap 8 BUN 9 D Creatinine 0.9 Random Glucose 91 Calcium 9.1 Total Bilirubin 0.5 Direct Bilirubin 0.2 AST 27 D ALT 69 D Alkaline Phosphatase 77 Total Protein 6.6 Albumin 3.6 Microbiology 10/22/17 16:30 Blood - Peripheral Venous Blood Culture - Preliminary NO GROWTH OBTAINED AFTER 24 HOURS, INCUBATION TO CONTINUE FOR 4 DAYS. 10/22/17 17:00 Blood - Peripheral Venous Blood Culture - Preliminary NO GROWTH OBTAINED AFTER 24 HOURS, INCUBATION TO CONTINUE FOR 4 DAYS. 10/23/17 12:10 Urine For Antigen Detection Legionella Antigen - Final 10/23/17 12:10 Urine For Antigen Detection Streptococcus pneumoniae Antigen (M - Final 10/22/17 16:20 Nasopharyngeal Swab Respiratory Syncytial Virus Ag - Final 10/21/17 23:45 Nasopharyngeal Swab Influenza Types A,B Antigen (LORI) - Final 10/21/17 23:45 Nasopharyngeal Swab - Final CXR - no acute process Flu swab neg RSV antigen neg ASSESSMENT AND PLAN: 52 yom not recently seen a physician, recent ETOH dependence, admitted with flu like symptoms, atypical chest pain, found with uncontrolled HTN and transaminitis. -Persistent fevers, ?Bibasilar PNA -URI like illness -Atypical chest pain, suspect likely from above rather than cardiac, positive risk factors -Uncontrolled HTN -Transaminitis, hepatic steatosis, vs mild ETOH hepatitis, resolved. -HLD Plan: Persistent fevers, blood cultures sent. CT chest with bibasilar atelectasis, ? superimposed PNA, CXR and lung exam clear. continue levaquin (antibiotic day 2) . Follow up urine PNA studies. Flu swab neg. RVP sent, emperic tamiflu day 2. RSV antigen neg. Right lower pole kidney stone, but no flank symptoms and neg urinalysis, make it less likely to be etiology, monitor for now. Hep panel liver US questioning hepatocellular disease. ID consult. Telemetry with no events. Troponin I neg x 2. For 2D echo. Cardiology input appreciated. Outpatient follo wup. Started ASA 81 mg daily. LFTs normalized. Start statin lipitor 10 mg daily and monitor LFTs. Continue lisinopril/chlorthaline. Discussed with patient daughter, will need outpatient electolytes/renal function monitoring. Mild transiminits from ?fatty liver vs recent ETOH dependence. No abdominal symptoms. ETOH cessation counseling provided. No concerns for withdrawal currently. Low salt/cholesterol diet counseling provided. Discussed with patient and daughter to follow up medical clinic next week, agreable. hold off d/c given persistent fevers. Anticipate atleast 2 midnight stays given persistent fevers, need for IV antibiotics, closer monitoring, IVF and additional w/u. Plan discussed with patient in detail, all questions answered.
--- NOTE | 2017-10-23 18:25 | PN ---
Physical Exam: SUBJECTIVE: Patient seen and examined. Tmax 102.9. Patient offers no new complaints. Says he feels better today. Denies chest pain, nausea, sob, dizziness, abdominal pain, diarrhea. OBJECTIVE: Vital Signs Period Temp Pulse Resp BP Sys/Hall Pulse Ox Last 24 Hr 99.6 F-102.9 F 85-94 18-20 148-159/79-103 95-96 GENERAL: The patient is awake, alert, and fully oriented, in no acute distress. HEAD: Normal with no signs of trauma. EYES: PERRL, extraocular movements intact, sclera anicteric, conjunctiva clear. ENT: Ears normal, nares patent, oropharynx clear without exudates, moist mucous membranes. NECK: supple. LUNGS: Breath sounds equal, clear to auscultation bilaterally, no wheezes, no crackles, no accessory muscle use. HEART: Regular rate and rhythm, S1, S2 without murmur, rub or gallop. ABDOMEN: Soft, nontender, nondistended, normoactive bowel sounds, no guarding, no rebound EXTREMITIES: 2+ pulses, warm, well-perfused, no edema. Laboratory Results - last 24 hr 10/23/17 10/23/17 10/23/17 05:56 05:56 05:56 WBC 6.7 RBC 4.49 Hgb 14.9 Hct 43.0 MCV 95.8 MCH 33.2 MCHC 34.7 RDW 12.9 Plt Count 227 MPV 8.5 Neutrophils % 65.2 Lymphocytes % 27.6 Monocytes % 6.2 Eosinophils % 0.5 Basophils % 0.5 PT with INR 12.70 H INR 1.12 Sodium 140 Potassium 4.3 Chloride 103 Carbon Dioxide 29 Anion Gap 8 BUN 9 D Creatinine 0.9 Random Glucose 91 Calcium 9.1 Total Bilirubin 0.5 Direct Bilirubin 0.2 AST 27 D ALT 69 D Alkaline Phosphatase 77 Total Protein 6.6 Albumin 3.6 Active Medications Generic Name Dose Route Start Last Admin Trade Name Freq PRN Reason Stop Dose Admin Acetaminophen 650 mg 10/23/17 13:53 10/23/17 13:59 Tylenol - PO 650 mg Q4H PRN Administration FEVER Atorvastatin Calcium 10 mg 10/23/17 22:00 Lipitor - PO HS [facility] Chlorthalidone 25 mg 10/22/17 10:00 10/23/17 09:44 Hygroton - PO 25 mg DAILY [facility] Administration Folic Acid 1 mg 10/22/17 11:00 10/23/17 09:44 Folic Acid - PO 1 mg DAILY [facility] Administration Guaifenesin 10 ml 10/22/17 16:06 10/22/17 16:21 Robitussin - PO 10 ml Q6H PRN Administration COUGH Lactated Ringer's 1,000 ml in 1,000 mls @ 75 mls/hr 10/22/17 16:15 10/22/17 16:21 Lactated Ringers Solution IV 75 mls/hr ASDIR [facility] Administration Levofloxacin 500 mg in 100 mls @ 100 mls/hr 10/24/17 10:00 Levaquin 500 Mg Premixed Ivpb - IVPB 10/24/17 10:59 ONCE ONE Lisinopril 10 mg 10/21/17 22:30 10/23/17 09:45 Prinivil PO 10 mg DAILY [facility] Administration Multivitamins/Minerals/Vitamin C 1 tab 10/23/17 10:00 10/23/17 09:44 Tab-A-Vit - PO 1 tab DAILY [facility] Administration Oseltamivir Phosphate 75 mg 10/22/17 22:00 10/23/17 09:45 Tamiflu - PO 10/27/17 21:59 75 mg BID [facility] Administration Thiamine HCl 100 mg 10/22/17 11:00 10/23/17 09:45 Vitamin B1 - PO 100 mg DAILY [facility] Administration ASSESSMENT/PLAN: 52 yo M, with no PCP, recent ETOH dependence, admitted with flu like symptoms, atypical chest pain, found with uncontrolled HTN and transaminitis. #Persistent Fevers -likely URI vs PNA -CT chest: bibasilar atelectasis, possible superimposed PNA, Repeat CXR: no focal opacity to suggest PNA -CXR clear -IV ABx Levaquin (Day 2) -FU urine PNA -Flu negative, RSV -FU RVP -Tamiflu Day 2 #Atypical Chest pain -likely URI vs PNA -Troponin I neg x 2 -Telemetry with no events. -Started ASA 81mg, Lipitor 10mg -Cardiology on board -FU Echo #Uncontrolled HTN -Start Lisinpril 10mg -Start Chlorthalidone 25mg -FU electrolytes/renal function outpatient -Will monitor -FU outpatient #Transaminitis -Hepatic steatosis vs mild ETH hepatitis -resolved -normal LFTs -ABD US- fatty liver vs hepatocellular disease -FU Hep panel -ETOH counseling provided #HLD -Lipitor 10mg #FEN -No IV fluids -WNL -Sodium controlled diet Dispo: Will d/c once fevers resolve and transition to oral antibiotics. Patient agreed to follow up outpatient at the medical clinic next week. Visit type - Emergency Visit Emergency Visit: Yes ED Registration Date: 10/23/17 Care time: The patient presented to the Emergency Department on the above date and was hospitalized for further evaluation of their emergent condition. - New Patient This patient is new to me today: Yes Date on this admission: 10/23/17 - Critical Care Critical Care patient: No
[2017-10-23] MEDS: ATORVASTATIN CA 10 MG TABLET (FP) PO SCH (21:31)
[2017-10-24] MEDS: LACTATED RINGERS SOLUTION 1,000 ML/1,000 ML INFUS.BAG IV SCH ×3 (05:38→21:22)
[2017-10-24 07:50] LABS: ANION GAP 8 (8-16); BLOOD UREA NITROGEN 9 mg/dL (7-18); CALCIUM 9.4 mg/dL (8.5-10.1); CHLORIDE 100 mmol/L (98-107); CO2 30 mmol/L (21-32); CREATININE 0.9 mg/dL (0.7-1.3); GLUCOSE,RANDOM 105 mg/dL (74-106); POTASSIUM 4.1 mmol/L (3.5-5.1); SODIUM 138 mmol/L (136-145)
[2017-10-24 08:05] LABS: HEMATOCRIT 46.3 % (35.4-49); HEMOGLOBIN 15.9 GM/dL (11.7-16.9); MCH 32.5 pg (25.7-33.7); MCHC 34.4 g/dl (32.0-35.9); MEAN CELL VOLUME 94.4 fl (80-96); PLATELET COUNT 244 K/MM3 (134-434); RDW 12.9 % (11.9-15.9); WHITE BLOOD COUNT 8.7 K/mm3 (4.0-10.0)
[2017-10-24] MEDS: LISINOPRIL 10 MG TABLET (FP) PO SCH (09:42)
[2017-10-24] MEDS: OSELTAMIVIR PHOSPHATE 75 MG CAPSULE PO SCH ×2 (09:42→21:23)
[2017-10-24] MEDS: guaiFENesin 200 MG/10 ML 10 ML UNIT-DOSE CUPS PO PRN (09:42)
[2017-10-24] MEDS: THIAMINE HCL 100 MG TABLET (FP) PO SCH (09:42)
[2017-10-24] MEDS: MULTIVITAMINS (DAILY MVI) TABLET (FP) PO SCH (09:42)
[2017-10-24] MEDS: FOLIC ACID 1 MG TABLET (FP) PO SCH (09:42)
[2017-10-24] MEDS ORDERED: PT OWN MED DRAWER 7, Y5N ONE (09:50)
[2017-10-24] MEDS: CHLORTHALIDONE 25 MG TABLET PO SCH (10:37)
--- NOTE | 2017-10-24 10:59 | CON.ID ---
Consult Consult Specialty:: infectious disease Referred by:: hospitalist Reason for Consultation:: fever - History of Present Illness Chief Complaint: cold/cough History of Present Illness: 52 year old man has been living in [facility] for last 6 months, noted he had cold symptoms for last two weeks he started having fever about a week ago. 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 while in no [place] no weight loss no dysura no hemoptysis no nausea or vomiting yellow clear sputum started on tamifllu given one dose of levaquin, one dose of ceftriaxone - Alcohol/Substance Use Hx Alcohol Use: No - Smoking History Smoking history: Never smoked Aproximately how many cigarettes per day: 20 - Social History Usual Living Arrangement: Alone ADL: Independent Occupation: local company truck driver History of Recent Travel: Yes ([facility]) Home Medications - Allergies Allergies/Adverse Reactions: Allergies Allergy/AdvReac Type Severity Reaction Status Date / Time No Known Allergies Allergy Verified 10/21/17 11:21 - Home Medications Home Medications: Ambulatory Orders NK [No Known Home Medication] 10/21/17 Family Disease History - Family Disease History Family Disease History: Heart Disease: Father, CA: Mother (llung cancer) Review of Systems - Review of Systems Constitutional: reports: Chills, Fever. denies: Loss of Appetite, Malaise Eyes: reports: No Symptoms. denies: Blurred Vision HENT: reports: No Symptoms. denies: Difficult Swallowing, Hearing Loss, Throat Pain Neck: reports: No Symptoms Cardiovascular: denies: Chest Pain, Edema, Shortness of Breath Respiratory: reports: Cough Gastrointestinal: reports: No Symptoms Genitourinary: reports: No Symptoms Breasts: reports: No Symptoms Reported Musculoskeletal: reports: Back Pain (resolved) Integumentary: reports: No Symptoms Neurological: reports: No Symptoms Physical Exam Vital Signs: Vital Signs Temperature 99.9 F H 10/24/17 10:00 Pulse Rate 95 H 10/24/17 10:00 Respiratory Rate 18 10/24/17 10:00 Blood Pressure 149/96 10/24/17 10:00 O2 Sat by Pulse Oximetry (%) 97 10/24/17 06:00 Constitutional: Yes: Well Nourished, No Distress, Calm, Other (well appearing) Eyes: Yes: WNL HENT: Yes: Atraumatic, Normocephalic, Other (good dentition). No: Thrush, Tonsillar Exudate Neck: Yes: Supple, Trachea Midline. No: Lymphadenopathy Cardiovascular: Yes: Regular Rate and Rhythm Respiratory: Yes: Regular, CTA Bilaterally Gastrointestinal: Yes: Normal Bowel Sounds, Soft ...Rectal Exam: Yes: Deferred Renal/: No: CVA Tenderness - Left, CVA Tenderness - Right Musculoskeletal: Yes: WNL. No: Back Pain Extremities: Yes: WNL Edema: No Psychiatric: Yes: Alert, Oriented Labs: CBC, BMP 10/24/17 06:50 10/24/17 06:50 Imaging - Results Chest X-ray: Report Reviewed, Image Reviewed Cat Scan: Report Reviewed, Image Reviewed Problem List - Problems (1) FUO (fever of unknown origin) Code(s): R50.9 - FEVER, UNSPECIFIED (2) Transaminitis Code(s): R74.0 - NONSPEC ELEV OF LEVELS OF TRANSAMNS & LACTIC ACID DEHYDRGNSE Assessment/Plan FUO with cough-well appearing- normal labs, lfts have resolved agree with tamiflu recent return from will obtain hiv, esr/crp, malaria smear blood cultures negative, will review ct scan of chest- doubt pneumonia RPR d/c antibiotics nothing to suggest ch[place]agunya, send zika serology d/whospitalist service
--- NOTE | 2017-10-24 14:21 | PN ---
Teaching Attending Note Name of Resident: Kyle Harrison ATTENDING PHYSICIAN STATEMENT I saw and evaluated the patient. I reviewed the resident's note and discussed the case with the resident. I agree with the resident's findings and plan as documented. SUBJECTIVE:states he was having fevers last night and night sweats. persistent non-productive cough for the past month. states hes had multiple sick contacts while in [place] which he just returned recently returned from after 6 months of being there. endorses B/L anticubital rash several months earlier which he contributed to mosquito bites and stated they were very pruritic. they resolved after a few weeks. was incarcerated 20 years ago but was only there for a few days. has been treated for STD also long time ago does not know which kind but received a 1x IM injection. denies CP, SOB, N/V/C/D, dysuria, hematuria, rhinorrhea, myalgia, aches, or weight loss. denies hx of IVDA sexually active with multiple female partners, intermittently uses condoms OBJECTIVE: Last Vital Signs Temp Pulse Resp BP Pulse Ox 98.0 F 95 H 18 149/96 97 10/24/17 13:33 10/24/17 10:00 10/24/17 10:00 10/24/17 10:00 10/24/17 13:38 General NAD HEENT good oral dentition, no oral ulcers or thrush, PERRL, EOMI, no lymphadenopathy CV S1 s2 RRR no murmur/rub/gallop Lungs CTA B/L no wheezing/rales/rhonchi Abdomen soft NT/ND Extremities no pedal edema Skin hyperpigmentation on L antecubital area ASSESSMENT AND PLAN: 52yo M with PMH continuous ETOH abuse presented to the Er with atypical CP and flu like symptoms 1. FUO- tm 103. pt is well appearing had transient transaminitis on presentation which is more likely due to ETOH use and not infection. CT and CXR both negative for infiltrates will d/c abx. will compete tamiflu day 3. will repeat sepsis workup, check ESR/CRP, RPR, GC/chlamydia, peripheral smear and Zika testing. cont droplet precautions. ID on board. spoke iwth ID. all Cx with NGTD 2. Acute transaminitis- likely due to ETOH use. now resolved. hepatitis panel pending. 3. Aytypical CP- likely pleuritic from cough. CTPE negative for PE or acute pathology. tronponins neg x2. can have stress done as outpatient 4. HTN- above goal. will increase lisinopril to 20mg. cont chlorthaldione 5. Continous ETOh abuse- counseled on risks of ETOH abuse. CIWA 0. cont thiamine /folate/MVI 6. Hypercholesteremia- started on statin 7. DVT ppx- EAM
--- NOTE | 2017-10-24 14:24 | PN ---
Physical Exam: SUBJECTIVE: Patient seen and examined. Tmax 103. Says he had night sweats last night. He also mentions he was [place] for the past 6 [place] where he's had many sick contacts and also had multiple sexual partners with no condoms. He also mentioned he had b/l anticubital rash a few months ago which he says it was from mosquito bites which resolved after a few weeks. Patient has a history of STD. He does not recall what he had but remembers getting a shot. Patient denies CP, nausea, vomiting, back pain, abdominal pain, diarrhea, hematuria, myalgia, weight loss, cough, SOB. OBJECTIVE: Vital Signs Period Temp Pulse Resp BP Sys/Hall Pulse Ox Last 24 Hr 98.0 F-103 F 85-98 18-21 142-161/92-111 96-97 GENERAL: The patient is awake, alert, and fully oriented, in no acute distress. HEAD: Normal with no signs of trauma. EYES: PERRL, extraocular movements intact, sclera anicteric, conjunctiva clear. ENT: Ears normal, nares patent, oropharynx clear without exudates, moist mucous membranes. NECK: supple. LUNGS: Breath sounds equal, clear to auscultation bilaterally, no wheezes, no crackles, no accessory muscle use. HEART: Regular rate and rhythm, S1, S2 without murmur, rub or gallop. ABDOMEN: Soft, nontender, nondistended, normoactive bowel sounds, no guarding, no rebound EXTREMITIES: 2+ pulses, Skin hyperpigmentation on L antecubital area Laboratory Results - last 24 hr 10/24/17 10/24/17 10/24/17 06:50 06:50 07:00 WBC 8.7 RBC 4.90 Hgb 15.9 Hct 46.3 MCV 94.4 MCH 32.5 MCHC 34.4 RDW 12.9 Plt Count 244 MPV 8.0 ESR Sodium 138 Potassium 4.1 Chloride 100 Carbon Dioxide 30 Anion Gap 8 BUN 9 Creatinine 0.9 Random Glucose 105 Calcium 9.4 C-Reactive Protein 1.7 H Cancelled HIV 1&2 Antibody Screen HIV P24 Antigen 10/24/17 10/24/17 07:00 11:00 WBC RBC Hgb Hct MCV MCH MCHC RDW Plt Count MPV ESR 11 Sodium Potassium Chloride Carbon Dioxide Anion Gap BUN Creatinine Random Glucose Calcium C-Reactive Protein HIV 1&2 Antibody Screen Negative HIV P24 Antigen Negative Active Medications Generic Name Dose Route Start Last Admin Trade Name Freq PRN Reason Stop Dose Admin Acetaminophen 650 mg 10/23/17 13:53 10/23/17 23:22 Tylenol - PO 650 mg Q4H PRN Administration FEVER Atorvastatin Calcium 10 mg 10/23/17 22:00 10/23/17 21:31 Lipitor - PO 10 mg HS ARMAND Administration Chlorthalidone 25 mg 10/22/17 10:00 10/24/17 10:37 Hygroton - PO 25 mg DAILY ARMAND Administration Folic Acid 1 mg 10/22/17 11:00 10/24/17 09:42 Folic Acid - PO 1 mg DAILY ARMAND Administration Guaifenesin 10 ml 10/22/17 16:06 10/24/17 09:42 Robitussin - PO 10 ml Q6H PRN Administration COUGH Lactated Ringer's 1,000 ml in 1,000 mls @ 75 mls/hr 10/22/17 16:15 10/24/17 05:38 Lactated Ringers Solution IV 75 mls/hr ASDIR ARMAND Administration Lisinopril 20 mg 10/24/17 13:42 Prinivil PO DAILY ARMAND Multivitamins/Minerals/Vitamin C 1 tab 10/23/17 10:00 10/24/17 09:42 Tab-A-Vit - PO 1 tab DAILY ARMAND Administration Oseltamivir Phosphate 75 mg 10/22/17 22:00 10/24/17 09:42 Tamiflu - PO 10/27/17 21:59 75 mg BID ARMAND Administration Thiamine HCl 100 mg 10/22/17 11:00 10/24/17 09:42 Vitamin B1 - PO 100 mg DAILY ARMAND Administration ASSESSMENT/PLAN: 52 yo M, with no PCP, recent ETOH dependence, admitted with flu like symptoms, atypical chest pain and uncontrolled HTN. #Fever of Unknown Origin -Persistent fevers, Tmax 103 -CXR, and CT both negative for infiltrates. Will d/c IV Antibiotics (Levaquin day 3) -FU urine PNA -Flu negative, RSV -Tamiflu Day 3 -ID on board -Traveled to for 6 months. Sick contacts, mosquitos, unprotected sex -Repeat sepsis workup with ESR,CRP, RPR, HIV, GC chlamydia -Peripheral smear and Zika testing. -Droplet precautions #Atypical Chest pain -pleuritic chest pain secondary to cough -Troponin I neg x 2 -CT unremarkable for PE -Telemetry with no events. -Started ASA 81mg, Lipitor 10mg -Cardiology on board -Echo unremarkable. #Uncontrolled HTN -Increase Lisinpril to 20mg -Start Chlorthalidone 25mg -FU electrolytes/renal function outpatient -Will monitor -FU outpatient #Transaminitis -resolved -normal LFTs -Likely due to alcohol abuse -ABD US- fatty liver vs hepatocellular disease -FU Hep panel -ETOH counseling provided #HLD -Lipitor 10mg #FEN -LR @75ml/hour -WNL -Sodium controlled diet Visit type - Emergency Visit Emergency Visit: Yes ED Registration Date: 10/23/17 Care time: The patient presented to the Emergency Department on the above date and was hospitalized for further evaluation of their emergent condition. - New Patient This patient is new to me today: No - Critical Care Critical Care patient: No
[2017-10-24] MEDS ORDERED: LISINOPRIL 20 MG TABLET (FP) PO SCH (14:45)
[2017-10-24 17:01] LABS: URINE APPEARANCE CLEAR; URINE BILIRUBIN NEGATIVE (NEGATIVE); URINE BLOOD NEGATIVE (NEGATIVE); URINE COLOR COLORLESS; URINE GLUCOSE (UA) NEGATIVE (NEGATIVE); URINE KETONE NEGATIVE (NEGATIVE); URINE LEUK ESTERASE NEGATIVE (NEGATIVE); URINE NITRITE NEGATIVE (NEGATIVE); URINE PROTEIN NEGATIVE (NEGATIVE); URINE UROBILINOGEN NEGATIVE mg/dL (0.2-1.0)
--- NOTE | 2017-10-24 18:43 | PN ---
Progress Note, Physician Chief Complaint: Events noted Not in distress History of Present Illness: Patient was seen and examined. Awake and alert. Chart was reviewed Denies chest pain, less SOB and no palpitations - Current Medication List Current Medications: Active Medications Acetaminophen (Tylenol -) 650 mg PO Q4H PRN PRN Reason: FEVER Last Admin: 10/23/17 23:22 Dose: 650 mg Atorvastatin Calcium (Lipitor -) 10 mg PO HS [facility] Last Admin: 10/23/17 21:31 Dose: 10 mg Chlorthalidone (Hygroton -) 25 mg PO DAILY [facility] Last Admin: 10/24/17 10:37 Dose: 25 mg Folic Acid (Folic Acid -) 1 mg PO DAILY [facility] Last Admin: 10/24/17 09:42 Dose: 1 mg Guaifenesin (Robitussin -) 10 ml PO Q6H PRN PRN Reason: COUGH Last Admin: 10/24/17 09:42 Dose: 10 ml Lactated Ringer's (Lactated Ringers Solution) 1,000 ml in 1,000 mls @ 75 mls/ hr IV ASDIR [facility] Last Admin: 10/24/17 18:14 Dose: 75 mls/hr Lisinopril (Prinivil) 20 mg PO DAILY [facility] Multivitamins/Minerals/Vitamin C (Tab-A-Vit -) 1 tab PO DAILY [facility] Last Admin: 10/24/17 09:42 Dose: 1 tab Oseltamivir Phosphate (Tamiflu -) 75 mg PO BID [facility] Stop: 10/27/17 21:59 Last Admin: 10/24/17 09:42 Dose: 75 mg Thiamine HCl (Vitamin B1 -) 100 mg PO DAILY [facility] Last Admin: 10/24/17 09:42 Dose: 100 mg - Objective Vital Signs: Vital Signs Temperature 98.0 F 10/24/17 13:33 Pulse Rate 95 H 10/24/17 10:00 Respiratory Rate 18 10/24/17 10:00 Blood Pressure 149/96 10/24/17 10:00 O2 Sat by Pulse Oximetry (%) 97 10/24/17 13:38 Constitutional: Yes: Well Nourished Eyes: Yes: PERRL HENT: Yes: Atraumatic Neck: Yes: Supple Cardiovascular: Yes: Regular Rate and Rhythm, S1, S2 Respiratory: Yes: Diminished Gastrointestinal: Yes: Normal Bowel Sounds, Soft. No: Tenderness Edema: No Labs: CBC, BMP 10/24/17 06:50 10/24/17 06:50 INR, PTT INR 1.12 (0.82-1.09) 10/23/17 05:56 Problem List - Problems (1) URI (upper respiratory infection) Code(s): J06.9 - ACUTE UPPER RESPIRATORY INFECTION, UNSPECIFIED (2) Chest pain Code(s): R07.9 - CHEST PAIN, UNSPECIFIED Qualifiers: Chest pain type: chest pain on breathing Qualified Code(s): R07.1 - Chest pain on breathing; R07.81 - Pleurodynia (3) HTN (hypertension) Code(s): I10 - ESSENTIAL (PRIMARY) HYPERTENSION Qualifiers: Hypertension type: essential hypertension Qualified Code(s): I10 - Essential (primary) hypertension (4) Hyperlipidemia Code(s): E78.5 - HYPERLIPIDEMIA, UNSPECIFIED Qualifiers: Hyperlipidemia type: pure hypercholesterolemia Qualified Code(s): E78.00 - Pure hypercholesterolemia, unspecified; E78.0 - Pure hypercholesterolemia Assessment/Plan 1. Chest pain syndrome, clinical presentation of which is consistent with musculoskeletal discomfort possible pleuritis, atypical for CAD and angina pectoris 2. HTN 3. Hypercholesterolemia 4. Fatty liver/steatosis, abnormal hepatic ultrasound, abnormal LFT's 5. Tobacco abuse PLAN: 1. Continue Lisinopril 10 qd and lipitor 10 qhs 2. Echocardiography reveals no evidence of pericardial effusion 3. MPI study for evaluation of the above noted presentation can be done as outpatient 4. Counseled smoking cessation and abstinence 5. Counselled compliance with therapy administration and medical follow up Further plans are to follow Harman Richards MD
[2017-10-24] MEDS: ATORVASTATIN CA 10 MG TABLET (FP) PO SCH (21:23)
[2017-10-25 06:10] LABS: HBSAG SCREEN Negative (Negative); HEP B CORE AB, TOT Negative (Negative)
[2017-10-25 08:08] LABS: HEMATOCRIT 44.5 % (35.4-49); HEMOGLOBIN 15.3 GM/dL (11.7-16.9); MCH 32.4 pg (25.7-33.7); MCHC 34.4 g/dl (32.0-35.9); MEAN CELL VOLUME 94.3 fl (80-96); MEAN PLT VOLUME 7.7 fl (7.5-11.1); PLATELET COUNT 265 K/MM3 (134-434); RBC 4.72 M/mm3 (4.00-5.60); RDW 12.4 % (11.9-15.9)
[2017-10-25 08:40] LABS: ALBUMIN 3.7 g/dl (3.4-5.0); ANION GAP 8 (8-16); BLOOD UREA NITROGEN 10 mg/dL (7-18); CALCIUM 9.5 mg/dL (8.5-10.1); CHLORIDE 100 mmol/L (98-107); CO2 31 mmol/L (21-32); CREATININE 0.8 mg/dL (0.7-1.3); GLUCOSE,RANDOM 128 mg/dL (74-106); POTASSIUM 4.5 mmol/L (3.5-5.1); SGOT/AST 26 U/L (15-37); SGPT/ALT 62 U/L (12-78); SODIUM 139 mmol/L (136-145)
[2017-10-25 08:41] LABS: ALK PHOS 78 U/L (45-117); BILIRUBIN,TOTAL 0.4 mg/dL (0.2-1.0); TOT PROT 6.9 g/dl (6.4-8.2)
[2017-10-25] MEDS ORDERED: PT OWN MED DRAWER 7, Y5N ONE (10:22)
[2017-10-25] MEDS: CHLORTHALIDONE 25 MG TABLET PO SCH (10:30)
[2017-10-25] MEDS: THIAMINE HCL 100 MG TABLET (FP) PO SCH (10:30)
[2017-10-25] MEDS: FOLIC ACID 1 MG TABLET (FP) PO SCH (10:30)
[2017-10-25] MEDS: LACTATED RINGERS SOLUTION 1,000 ML/1,000 ML INFUS.BAG IV SCH (10:31)
[2017-10-25] MEDS: LISINOPRIL 20 MG TABLET (FP) PO SCH (10:31)
[2017-10-25] MEDS: MULTIVITAMINS (DAILY MVI) TABLET (FP) PO SCH (10:31)
[2017-10-25] MEDS: OSELTAMIVIR PHOSPHATE 75 MG CAPSULE PO SCH ×2 (10:31→21:22)
--- NOTE | 2017-10-25 12:41 | PN ---
Teaching Attending Note Name of Resident: Kyle Harrison ATTENDING PHYSICIAN STATEMENT I saw and evaluated the patient. I reviewed the resident's note and discussed the case with the resident. I agree with the resident's findings and plan as documented. SUBJECTIVE:states cough is nearly resolved. no nights sweats or fevers last night. no CP, SOB, OBJECTIVE: Last Vital Signs Temp Pulse Resp BP Pulse Ox 98.6 F 74 20 128/78 97 10/25/17 08:00 10/25/17 08:00 10/25/17 08:00 10/25/17 08:00 10/25/17 08:00 General NAD CV S1 s2 RRR no murmur/rub/gallop Lungs CTA B/L no wheezing/rales/rhonchi ASSESSMENT AND PLAN: 52yo M with PMH continuous ETOH abuse presented to the ER with atypical CP and flu like symptoms 1. FUO-afebrile 24H. Sputum Cx with yeast. comprehensive workup sent yesterday. pending results. UA is negative. CX sent including Zika and blood smear. on tam day 4. ID on board. cont droplet precautions. 2. Acute transaminitis- likely due to ETOH use. now resolved. hepatitis panel negative. 3. Aytypical CP- likely pleuritic from cough. CTPE negative for PE or acute pathology. tronponins neg x2. can have stress done as outpatient 4. HTN- improved. lisinopril increased yesterday. cont chlorthaldione 5. Continous ETOh abuse- counseled on risks of ETOH abuse. CIWA 0. cont thiamine /folate/MVI 6. Hypercholesteremia- on statin 7. DVT ppx- EAM
--- NOTE | 2017-10-25 15:59 | PN ---
Progress Note (short form) - Note Progress Note: doing well no complaints dry cough Vital Signs Period Temp Pulse Resp BP Sys/Hall Pulse Ox Last 24 Hr 98.3 F-99.1 F 73-91 20-20 128-142/78-92 97-97 cor-rrr lungs clear abd soft,nt ext no edema CBC, BMP 10/25/17 06:45 10/25/17 06:45 Laboratory Tests 10/24/17 10/24/17 06:50 07:00 ESR 11 C-Reactive Protein 1.7 H hiv negative a/p fever/cough viral syndrome no objection to d/c home f/u serologies as outpt to complete 5 days tamiflu Problem List - Problems (1) FUO (fever of unknown origin) Code(s): R50.9 - FEVER, UNSPECIFIED (2) Transaminitis Code(s): R74.0 - NONSPEC ELEV OF LEVELS OF TRANSAMNS & LACTIC ACID DEHYDRGNSE
--- NOTE | 2017-10-25 16:44 | PN ---
Physical Exam: SUBJECTIVE: Patient seen and examined. Patient says he feels very comfortable. No fevers, chills, night swears. He had a formed, bowel movement early in the morning and denies bloody stools. OBJECTIVE: Vital Signs Period Temp Pulse Resp BP Sys/Hall Pulse Ox Last 24 Hr 98.3 F-99.1 F 73-91 20-20 128-142/78-92 97-97 GENERAL: The patient is awake, alert, and fully oriented, in no acute distress. HEAD: Normal with no signs of trauma. EYES: PERRL, extraocular movements intact, sclera anicteric, conjunctiva clear. ENT: Ears normal, nares patent, oropharynx clear without exudates, moist mucous membranes. NECK: supple. LUNGS: Breath sounds equal, clear to auscultation bilaterally, no wheezes, no crackles, no accessory muscle use. HEART: Regular rate and rhythm, S1, S2 without murmur, rub or gallop. ABDOMEN: Soft, nontender, nondistended, normoactive bowel sounds, no guarding, no rebound EXTREMITIES: 2+ pulses, Skin hyperpigmentation on L antecubital area Laboratory Results - last 24 hr 10/24/17 10/24/17 10/24/17 06:50 15:10 17:45 WBC RBC Hgb Hct MCV MCH MCHC RDW Plt Count MPV Sodium Potassium Chloride Carbon Dioxide Anion Gap BUN Creatinine Creat Clearance w eGFR Random Glucose Lactic Acid 1.5 Calcium Total Bilirubin AST ALT Alkaline Phosphatase Total Protein Albumin Urine Color Colorless Urine Appearance Clear Urine pH 8.0 D Ur Specific [place] 1.004 Urine Protein Negative Urine Glucose (UA) Negative Urine Ketones Negative Urine Blood Negative Urine Nitrite Negative Urine Bilirubin Negative Urine Urobilinogen Negative Ur Leukocyte Esterase Negative RPR Titer Hepatitis A Ab Total Negative Hep Bs Antigen Negative Hep Bs Antibody Non reactive Hep B Core Total Ab Negative Hepatitis C Antibody <0.1 10/25/17 10/25/17 10/25/17 06:45 06:45 06:45 WBC 9.0 RBC 4.72 Hgb 15.3 Hct 44.5 MCV 94.3 MCH 32.4 MCHC 34.4 RDW 12.4 Plt Count 265 MPV 7.7 Sodium 139 Potassium 4.5 Chloride 100 Carbon Dioxide 31 Anion Gap 8 BUN 10 Creatinine 0.8 Creat Clearance w eGFR > 60 Random Glucose 128 H D Lactic Acid Calcium 9.5 Total Bilirubin 0.4 AST 26 ALT 62 Alkaline Phosphatase 78 Total Protein 6.9 Albumin 3.7 Urine Color Urine Appearance Urine pH Ur Specific [place] Urine Protein Urine Glucose (UA) Urine Ketones Urine Blood Urine Nitrite Urine Bilirubin Urine Urobilinogen Ur Leukocyte Esterase RPR Titer Nonreactive Hepatitis A Ab Total Hep Bs Antigen Hep Bs Antibody Hep B Core Total Ab Hepatitis C Antibody Active Medications Generic Name Dose Route Start Last Admin Trade Name Freq PRN Reason Stop Dose Admin Acetaminophen 650 mg 10/23/17 13:53 10/23/17 23:22 Tylenol - PO 650 mg Q4H PRN Administration FEVER Atorvastatin Calcium 10 mg 10/23/17 22:00 10/24/17 21:23 Lipitor - PO 10 mg HS ARMAND Administration Chlorthalidone 25 mg 10/22/17 10:00 10/25/17 10:30 Hygroton - PO 25 mg DAILY ARMAND Administration Folic Acid 1 mg 10/22/17 11:00 10/25/17 10:30 Folic Acid - PO 1 mg DAILY ARMAND Administration Guaifenesin 10 ml 10/22/17 16:06 10/24/17 09:42 Robitussin - PO 10 ml Q6H PRN Administration COUGH Lisinopril 20 mg 10/25/17 10:00 10/25/17 10:31 Prinivil PO 20 mg DAILY ARMAND Administration Multivitamins/Minerals/Vitamin C 1 tab 10/23/17 10:00 10/25/17 10:31 Tab-A-Vit - PO 1 tab DAILY ARMAND Administration Oseltamivir Phosphate 75 mg 10/22/17 22:00 10/25/17 10:31 Tamiflu - PO 10/27/17 21:59 75 mg BID ARMAND Administration Thiamine HCl 100 mg 10/22/17 11:00 10/25/17 10:30 Vitamin B1 - PO 100 mg DAILY ARMAND Administration ASSESSMENT/PLAN: 52 yo M, with no PCP, recent ETOH dependence, admitted with flu like symptoms, atypical chest pain and uncontrolled HTN. #Fever of Unknown Origin -Now afebrile >24 hours -CXR, and CT both negative for infiltrates. Completed IV Antibiotics (Levaquin day 3) -Urine negative for PNA -Flu negative, RSV -Tamiflu Day 4 -ID on board -CRP 1.7 -HIV negative -Traveled to for 6 months. Sick contacts, mosquitos, unprotected sex -FU blood, Ucx -FU RPR, GC chlamydia -FU Peripheral smear and Zika testing. -Droplet precautions #Atypical Chest pain -pleuritic chest pain secondary to cough -Troponin I neg x 2 -CT unremarkable for PE -Telemetry with no events. -Started ASA 81mg, Lipitor 10mg -Cardiology on board -Echo unremarkable. #Uncontrolled HTN -resolved -Cont Lisinpril to 20mg -Cont Chlorthalidone 25mg -FU electrolytes/renal function outpatient -Will monitor -FU outpatient #Transaminitis -resolved -normal LFTs -Likely due to alcohol abuse -ABD US- fatty liver vs hepatocellular disease -Hepatitis negative -ETOH counseling provided #HLD -Lipitor 10mg #FEN -No IV fluids -WNL -Sodium controlled diet Visit type - Emergency Visit Emergency Visit: Yes ED Registration Date: 10/23/17 Care time: The patient presented to the Emergency Department on the above date and was hospitalized for further evaluation of their emergent condition. - New Patient This patient is new to me today: No - Critical Care Critical Care patient: No
--- NOTE | 2017-10-25 17:29 | PN ---
Progress Note, Physician History of Present Illness: Denies further chest pain or dyspnea, cough improved. - Current Medication List Current Medications: Active Medications Acetaminophen (Tylenol -) 650 mg PO Q4H PRN PRN Reason: FEVER Last Admin: 10/23/17 23:22 Dose: 650 mg Atorvastatin Calcium (Lipitor -) 10 mg PO HS [facility] Last Admin: 10/24/17 21:23 Dose: 10 mg Chlorthalidone (Hygroton -) 25 mg PO DAILY [facility] Last Admin: 10/25/17 10:30 Dose: 25 mg Folic Acid (Folic Acid -) 1 mg PO DAILY [facility] Last Admin: 10/25/17 10:30 Dose: 1 mg Guaifenesin (Robitussin -) 10 ml PO Q6H PRN PRN Reason: COUGH Last Admin: 10/24/17 09:42 Dose: 10 ml Lisinopril (Prinivil) 20 mg PO DAILY [facility] Last Admin: 10/25/17 10:31 Dose: 20 mg Multivitamins/Minerals/Vitamin C (Tab-A-Vit -) 1 tab PO DAILY [facility] Last Admin: 10/25/17 10:31 Dose: 1 tab Oseltamivir Phosphate (Tamiflu -) 75 mg PO BID [facility] Stop: 10/27/17 21:59 Last Admin: 10/25/17 10:31 Dose: 75 mg Thiamine HCl (Vitamin B1 -) 100 mg PO DAILY [facility] Last Admin: 10/25/17 10:30 Dose: 100 mg - Objective Vital Signs: Vital Signs Temperature 98.4 F 10/25/17 15:11 Pulse Rate 78 10/25/17 15:11 Respiratory Rate 20 10/25/17 15:11 Blood Pressure 141/92 10/25/17 15:11 O2 Sat by Pulse Oximetry (%) 97 10/25/17 08:00 Constitutional: Yes: No Distress, Calm, Thin Neck: Yes: Supple Cardiovascular: Yes: Regular Rate and Rhythm Respiratory: Yes: Regular, Diminished, On Nasal O2 Gastrointestinal: Yes: Normal Bowel Sounds, Soft Edema: No Labs: CBC, BMP 10/25/17 06:45 10/25/17 06:45 INR, PTT INR 1.12 (0.82-1.09) 10/23/17 05:56 Problem List - Problems (1) Hyperlipidemia Code(s): E78.5 - HYPERLIPIDEMIA, UNSPECIFIED Qualifiers: Hyperlipidemia type: pure hypercholesterolemia Qualified Code(s): E78.00 - Pure hypercholesterolemia, unspecified; E78.0 - Pure hypercholesterolemia (2) Chest pain Code(s): R07.9 - CHEST PAIN, UNSPECIFIED Qualifiers: Chest pain type: chest pain on breathing Qualified Code(s): R07.1 - Chest pain on breathing; R07.81 - Pleurodynia (3) HTN (hypertension) Code(s): I10 - ESSENTIAL (PRIMARY) HYPERTENSION Qualifiers: Hypertension type: essential hypertension Qualified Code(s): I10 - Essential (primary) hypertension (4) Transaminitis Code(s): R74.0 - NONSPEC ELEV OF LEVELS OF TRANSAMNS & LACTIC ACID DEHYDRGNSE Assessment/Plan 10/24/2017 Normal biventricular size and fxn, tr [place] 1. Chest pain syndrome, clinical presentation of which is consistent with musculo-skeletal discomfort possible pleuritis, atypical for CAD angina pectoris 2. HTN 3. Hypercholesterolemia 4. Fatty liver/steatosis, abnormal hepatic ultrasound, abnormal LFT's improving 5. Tobacco abuse 6. Viral syndrome PLAN: 1. Continue lisinopril 10 qd, chlorthalidone 25 qd, lipitor 10 qhs 2. MPI study for evaluation of the above noted presentation, as outpatient 3. Counseled smoking cessation and abstinence 4. Counselled compliance with therapy administration and medical F/U 5. Complete Tamiflu course 6. Can be D/C from the cardiovascular point of view and outpatient F/U
--- NOTE | 2017-10-25 21:11 | PN ---
Teaching Attending Note Name of Resident: Carleen Avila ATTENDING PHYSICIAN STATEMENT I saw and evaluated the patient. I reviewed the resident's note and discussed the case with the resident. I agree with the resident's findings and plan as documented. SUBJECTIVE: OBJECTIVE: ASSESSMENT AND PLAN: admit patient for obs unit to r/o ACS consult cardiology smoking cessation
[2017-10-25] MEDS: ATORVASTATIN CA 10 MG TABLET (FP) PO SCH (21:22)
[2017-10-26] MEDS ORDERED: PT OWN MED DRAWER 7, Y5N ONE (09:12)
[2017-10-26] MEDS: OSELTAMIVIR PHOSPHATE 75 MG CAPSULE PO SCH (09:40)
[2017-10-26] MEDS: THIAMINE HCL 100 MG TABLET (FP) PO SCH (09:40)
[2017-10-26] MEDS: MULTIVITAMINS (DAILY MVI) TABLET (FP) PO SCH (09:40)
[2017-10-26] MEDS: LISINOPRIL 20 MG TABLET (FP) PO SCH (09:40)
[2017-10-26] MEDS: FOLIC ACID 1 MG TABLET (FP) PO SCH (09:40)
[2017-10-26] MEDS: CHLORTHALIDONE 25 MG TABLET PO SCH (09:40)
--- NOTE | 2017-10-26 12:51 | PN ---
Progress Note, Physician History of Present Illness: Denies further chest pain or dyspnea, cough improved. - Current Medication List Current Medications: Active Medications Acetaminophen (Tylenol -) 650 mg PO Q4H PRN PRN Reason: FEVER Last Admin: 10/23/17 23:22 Dose: 650 mg Atorvastatin Calcium (Lipitor -) 10 mg PO HS [facility] Last Admin: 10/25/17 21:22 Dose: 10 mg Chlorthalidone (Hygroton -) 25 mg PO DAILY [facility] Last Admin: 10/26/17 09:40 Dose: 25 mg Folic Acid (Folic Acid -) 1 mg PO DAILY [facility] Last Admin: 10/26/17 09:40 Dose: 1 mg Guaifenesin (Robitussin -) 10 ml PO Q6H PRN PRN Reason: COUGH Last Admin: 10/24/17 09:42 Dose: 10 ml Lisinopril (Prinivil) 20 mg PO DAILY [facility] Last Admin: 10/26/17 09:40 Dose: 20 mg Multivitamins/Minerals/Vitamin C (Tab-A-Vit -) 1 tab PO DAILY [facility] Last Admin: 10/26/17 09:40 Dose: 1 tab Oseltamivir Phosphate (Tamiflu -) 75 mg PO BID [facility] Stop: 10/27/17 21:59 Last Admin: 10/26/17 09:40 Dose: 75 mg Thiamine HCl (Vitamin B1 -) 100 mg PO DAILY [facility] Last Admin: 10/26/17 09:40 Dose: 100 mg - Objective Vital Signs: Vital Signs Temperature 98.5 F 10/26/17 08:00 Pulse Rate 86 10/26/17 08:00 Respiratory Rate 20 10/26/17 08:00 Blood Pressure 124/86 10/26/17 08:00 O2 Sat by Pulse Oximetry (%) 97 10/26/17 08:00 Constitutional: Yes: No Distress, Calm, Thin Neck: Yes: Supple Cardiovascular: Yes: Regular Rate and Rhythm Respiratory: Yes: Regular, CTA Bilaterally Gastrointestinal: Yes: Normal Bowel Sounds, Soft Edema: No Labs: CBC, BMP 10/25/17 06:45 10/25/17 06:45 INR, PTT INR 1.12 (0.82-1.09) 10/23/17 05:56 Problem List - Problems (1) Hyperlipidemia Code(s): E78.5 - HYPERLIPIDEMIA, UNSPECIFIED Qualifiers: Hyperlipidemia type: pure hypercholesterolemia Qualified Code(s): E78.00 - Pure hypercholesterolemia, unspecified; E78.0 - Pure hypercholesterolemia (2) Chest pain Code(s): R07.9 - CHEST PAIN, UNSPECIFIED Qualifiers: Chest pain type: chest pain on breathing Qualified Code(s): R07.1 - Chest pain on breathing; R07.81 - Pleurodynia (3) HTN (hypertension) Code(s): I10 - ESSENTIAL (PRIMARY) HYPERTENSION Qualifiers: Hypertension type: essential hypertension Qualified Code(s): I10 - Essential (primary) hypertension (4) Transaminitis Code(s): R74.0 - NONSPEC ELEV OF LEVELS OF TRANSAMNS & LACTIC ACID DEHYDRGNSE Assessment/Plan 10/24/2017 Normal biventricular size and fxn, tr [place] 1. Chest pain syndrome, clinical presentation of which is consistent with musculoskeletal discomfort possible pleuritis, atypical for CAD angina pectoris since resolved 2. HTN 3. Hypercholesterolemia 4. Fatty liver/steatosis, abnormal hepatic ultrasound, abnormal LFT's improving 5. Tobacco abuse 6. Viral syndrome PLAN: 1. Continue lisinopril 10 qd, chlorthalidone 25 qd, lipitor 10 qhs 2. MPI study for evaluation of the above noted presentation, as outpatient 3. Counseled smoking cessation and abstinence 4. Counselled compliance with therapy administration and medical F/U 5. Complete Tamiflu course 6. Can be D/C from the cardiovascular point of view and outpatient F/U
[2017-10-26 13:49] VITALS: BP 117/84; PULSE 79; TEMP 97.5
--- NOTE | 2017-10-26 16:35 | PN ---
Teaching Attending Note Name of Resident: Kyle Harrison ATTENDING PHYSICIAN STATEMENT I saw and evaluated the patient. I reviewed the resident's note and discussed the case with the resident. I agree with the resident's findings and plan as documented. SUBJECTIVE:asymptomatic. no longer have fever or chills. denies Cp, SOB, fever, chills, N/V/c/D, dysuria OBJECTIVE: Last Vital Signs Temp Pulse Resp BP Pulse Ox 97.5 F L 79 18 117/84 97 10/26/17 13:47 10/26/17 13:47 10/26/17 13:47 10/26/17 13:47 10/26/17 08:00 General NAD Lungs CTA B/L no wheezing/rales/rhonchi ASSESSMENT AND PLAN: 52yo M with PMH continuous ETOH abuse presented to the ER with atypical CP and flu like symptoms 1. FUO-afebrile x48H. all results negative to date. RPR negative. Bcx negative. completes 5 day of Tamiflu today. will need to f/u with ID as outpatient for studies sent. 2. Acute transaminitis- likely due to ETOH use. now resolved. hepatitis panel negative. 3. Aytypical CP- likely pleuritic from cough. CTPE negative for PE or acute pathology. tronponins neg x2. can have stress done as outpatient 4. HTN- improved. lisinopril increased yesterday. cont chlorthaldione 5. Continous ETOh abuse- counseled on risks of ETOH abuse. CIWA 0. cont thiamine /folate/MVI 6. Hypercholesteremia- on statin 7. DVT ppx- EAM 8. d/c home with ID follow up. explained importance of following up with both primary care and ID for lab results.
--- NOTE | 2017-10-26 19:10 | DS ---
Physical Exam: SUBJECTIVE: Patient seen and examined. Patient says he feels very comfortable. No fevers, chills, night sweats, CP, nausea, vomiting. OBJECTIVE: Vital Signs Period Temp Pulse Resp BP Sys/Hall Pulse Ox Last 24 Hr 97.5 F-99.2 F 77-86 18-20 111-138/82-94 97-97 PHYSICAL EXAM GENERAL: The patient is awake, alert, and fully oriented, in no acute distress. HEAD: Normal with no signs of trauma. EYES: PERRL, extraocular movements intact, sclera anicteric, conjunctiva clear. ENT: Ears normal, nares patent, oropharynx clear without exudates, moist mucous membranes. NECK: supple. LUNGS: Breath sounds equal, clear to auscultation bilaterally, no wheezes, no crackles, no accessory muscle use. HEART: Regular rate and rhythm, S1, S2 without murmur, rub or gallop. ABDOMEN: Soft, nontender, nondistended, normoactive bowel sounds, no guarding, no rebound EXTREMITIES: 2+ pulses, Skin hyperpigmentation on L antecubital area LABS Laboratory Results - last 24 hr 10/24/17 16:00 TB Test (QFT) Negative HOSPITAL COURSE: Date of Admission:10/23/17 52 yo M, with no PCP, recent ETOH dependence, admitted with flu like symptoms, atypical chest pain, transaminitis, and uncontrolled HTN and was admitted and treated for Pneumonia and Flu. CT negative for PE. Trops negative x 2. Telemetry with no events. Echo unremarkable. Patient was started on and completed 4/5 days of Tamiflu. Patient was also started on IV Abx, 3 days of Levaquin. Over course of hospital stay patient developed persistent fevers. He mentioned he traveled [place] [facility] [place] and was bitten by mosquitos and had multiple sexual partners with no contraception. ID was consulted. Cultures negative. Patient was negative for HIV, Syphilis, STDs. Zika and peripheral smears are pending and patient was advised to follow up with ID outpatient for results. Patient's LFT's resolved and were WNL. Fevers resolved. Patient clinically improved and medically cleared for discharge. Patient started on Anti-Htn therapy with Chlorthalidone 25mg and Lisinopril 20mg. Patient was also advised to follow up with a new PCP outpatient. Agreed to see Dr. Banks at the clinic after 1 week. Date of Discharge: 10/26/17 Minutes to complete discharge: 35 Discharge Summary Reason For Visit: CHEST PAIN Condition: Stable - Instructions Diet, Activity, Other Instructions: You were here because you were treated with the Flu and also because of persistent fevers. Most of the tests came back negative. You will need to follow up with Infectious disease in 1 week for the remaining test results. You have been diagnosed to have High blood pressure and High cholesterol. We started you on medications. Please take it as directed. Please follow up with your primary care physician in 1 week. You will need blood work repeated outpatient (BMP). If you have worsening of your fevers, call your doctor or go to the nearest emergency room. Referrals: Saad Banks MD [Staff Physician] - 1 Week Diane Mayo MD [Staff Physician] - 1 Week Disposition: HOME - Home Medications Comprehensive Discharge Medication List: Ambulatory Orders Atorvastatin Ca [Lipitor] 10 mg PO HS #30 tablet 10/26/17 Chlorthalidone [Hygroton -] 25 mg PO DAILY #30 tablet 10/26/17 Lisinopril [Prinivil] 20 mg PO DAILY #30 tablet 10/26/17 Multivitamins [Multivit ([facility] Formulary)] 1 tab PO DAILY tab 10/26/17 Oseltamivir Phosphate [Tamiflu] 75 mg PO ONCE #1 capsule 10/26/17 This patient is new to me today: No Emergency Visit: Yes ED Registration Date: 10/23/17 Care time: The patient presented to the Emergency Department on the above date and was hospitalized for further evaluation of their emergent condition. Critical Care patient: No - Discharge Referral Referred to [facility] No
== END 2017-10-26 15:41 | disposition home or self-care (01) | DRG 199 ==
LOC: JER 11:19 → JERBED 22:21 → J7W 10-22 18:36 → OBSVTOIN 10-23 08:30 → J7W 10-23 09:32 → J6S 10-23 21:12
PROVIDERS: ADMIT Internal Medicine; ATTEND Internal Medicine
DX: I16.0 Hypertensive urgency (principal); R50.9 Fever, unspecified; M54.89 Other dorsalgia; F17.200 Nicotine dependence, unspecified, uncomplicated; F10.10 Alcohol abuse, uncomplicated; R94.31 Abnormal electrocardiogram [ECG] [EKG]; R07.89 Other chest pain; R74.0 Nonspecific elevation of levels of transaminase and lactic acid dehydrogenase [LDH]; E78.00 Pure hypercholesterolemia, unspecified; K76.0 Fatty (change of) liver, not elsewhere classified; J98.11 Atelectasis; J06.9 Acute upper respiratory infection, unspecified; B34.9 Viral infection, unspecified; K70.10 Alcoholic hepatitis without ascites
CPT/HCPCS: 36415; 71045-TC; 71046-TC-FY; 71260-TC; 76705-TC; 80048; 80053; 80061; 80076; 81003; 81015; 82550; 83036; 83605; 83721; 83735; 83880; 84100; 84439; 84443; 84484; 85025; 85027; 85379; 85610; 85651; 86140; 86480; 86593; 86704; 86706; 86708; 86803; 87040; 87070; 87086; 87205; 87207; 87340; 87389; 87420; 87633; 87804; 87899; 93005; 93010; 93306-TC; 99284-25; G0378